=== PATIENT | female | born 1945 | race Caucasian/White ===

== ENCOUNTER 2016-03-16 13:06 | Inpatient (IN) | payer MEDICARE, OTHER ==
[2016-03-16] VITALS (10 sets, daily range): BP systolic 109–130; BP diastolic 57–66; PULSE 81–92; RESP 16–25; O2SAT 92–98
[~2016-03-16] VITALS: Ht 167.6 cm; Wt 57.3 kg
[~2016-03-16 13:06] MED LIST: ACET-2404 PO; ALBUTHFA INH; AZIT250T4 PO; BENZ-12 PO; DXM4T PO; LTH300C PO; OMEP20TA86 PO; TIOT18CA INH; TUMS PO
[2016-03-16 13:54] LABS: BASOPHILS % (AUTO) 0.2 % (0-3)
[2016-03-16 13:57] LABS: EOSINOPHILS % (AUTO) 0.4 % (0-5); MONOCYTES % (AUTO) 6.8 % (4-12); Mean Corpuscular Hemoglobin 27.7 pg (27.0-35.0); Mean Corpuscular Volume 91.1 fL (81-100); NEUTROPHILS % (AUTO) 87.7 % (40-74); Platelet Count 388 bil/L (150-400)
--- NOTE | 2016-03-16 13:59 | ED.REPORT ---
HPI-General Illness Date of Service Mar 16, 2016 ED Provider: Nisreen Mccarthy MD Patient is a 70 year old female with a hx of RA and COPD who reports to the ED from Urgent Care due to increased shortness of breath over the last week. She presents alert and denies pain. Patient's son states, "she has been really week , unable to get off the toilet by herself." Pt c/o associated black diarrhea for the past 3 days, bloody/tarry stool, fatigue, cough, and a slight fever this morning. She has not noticed a fever at home previously. Pt used her Ventolin inhaler once in the past week, which is not usual. She has never had a heart attack or stroke, and currently lives alone. Nursing Notes Stated Complaint: GENERALIZED WEAKNESS Chief Complaint: Respiratory Complaints Nursing Notes Reviewed: Yes Allergies: Coded Allergies: Sulfa (Sulfonamide Antibiotics) (Verified Allergy, Mild, Rash, 03/16/16) Uncoded Allergies: CT DYE (Allergy, Severe, HIVES, 02/12/13) (IVP) DIAZIDE (Allergy, Mild, Rash, 01/27/13) Scheduled Albuterol HFA (Proair HFA) 8.5 Gm Hfa.aer.ad 2 PUFFS INHALATION Q4H Ascorbic Acid (Vitamin C) 1,000 Mg Tab.chew 1,000 MG PO DAILY Dexamethasone (Dexamethasone) 1 Mg Tab 2 MG PO DAILY Ferrous Sulfate (Ferrous Sulfate) 325 Mg Tablet 650 MG PO QAM Hydroxychloroquine Sulfate (Hydroxychloroquine Sulfate) 200 Mg Tablet 400 MG PO DAILY Lactobacillus Acidophilus (Probiotic) 1 Each Capsule 1 EACH PO DAILY Paulina Carbonate (Paulina Carbonate) 300 Mg Cap 300 MG PO BID Methotrexate Sodium (Methotrexate) 2.5 Mg Tablet 7.5 MG PO BID-once a week Takes on Wednesdays 3 tabs (7.5mg) in AM and 3 tabs (7.5mg) in PM Scheduled PRN Acetaminophen (Extra Strength Non-Aspirin) 500 Mg Tablet 1,000 MG PO TID PRN PRN For Pain Calcium Carbonate (Tums) 500 Mg Tab.chew 1,000 MG PO TID PRN PRN For Indigestion General Time Seen by MD: 13:38 Chief Complaint Other (shortness of breath) Hx Obtained From: Patient, Son Arrived By: Walk-in Sudden in Onset?: Yes Onset Occurred: 1 week ago Symptom Duration: Since onset Recent Healthcare: Recent doctor visit Similar Sx Previous: Yes Past Medical History Past Medical History COPD hx of Pneumonia, last episode 2003 shogun's disease rheumatoid arthritis Reports: Depression Past Surgical History denies Reports: Tubal ligation Smoking History Never Smoker Social History Alcohol Use: "Social" Other Social History: Good social support, Lives alone Ambulatory Status Independent Review of Systems Full Review of Systems Constitutional: Reports: Fatigue, Fever Respiratory: Reports: Non-productive cough, Shortness of breath GI: Reports: Bloody/tarry stool, Diarrhea Neurologic: Reports: Weakness Complete sys rev & neg: except as marked. Physical Exam Vital Signs Vital Signs Date Time Temp Pulse Resp B/P Pulse Ox O2 Delivery O2 Flow Rate FiO2 03/16/16 15:21 90 24 115/57 95 Room Air 03/16/16 13:52 37.1 92 22 130/66 96 Room Air 03/16/16 13:16 36.2 88 18 111/64 98 Room Air Initial VS: Reviewed Head / Eyes: Atraumatic, Normocephalic, PERRL ENT: Mucous membranes moist, Conjunctiva normal, No scleral icterus Neck: Supple, Non-tender, Full range of motion Back: No CVA tenderness Extremities: Vascular intact, Neuro intact, No swelling, No tenderness Skin: Warm, Dry, No cyanosis Neurologic: Alert, Oriented, Nonfocal Psychiatric: Mood/affect normal, Behavior normal, Normal thought content General/Constitutional: Awake, Alert, Cooperative Respiratory / Chest: No wheezing no significant wheezes, diminished lung sounds throughout Heart Rate / Rhythm: Positive: Tachycardia Heart Sounds / Murmur: Positive: Systolic murmur present.. (IV/) tachycardic but not using accessory muscles Abdomen: Soft Bowel Sounds / Distention: Positive: Bowel sounds hyperactive Rectum / Perineum: Blood - occult heme - no stool in vault and clean glove with attempts Interpretation & Diagnostics Lab Results Interpretation Result Diagram: 03/17/16 0315 03/17/16 031 Test 03/16/16 13:40 03/16/16 15:29 03/16/16 15:55 D-Dimer 1.8mg/L (<0.50) Lactic Acid Level 1.5mmol/L (0.4-2.0) Paulina Level 1.0mEq/L (0.5-1.5) Hemoglobin A1c 5.6% (4.8-5.6) Magnesium Level 2.3mg/dL (1.6-2.6) Troponin T 0.018ug/L (0.0-0.011) Pro-B-Type Natriuretic Peptide 313.3pg/mL (0-301) Prealbumin 8mg/dL (20-40) Procalcitonin 0.41ng/mL (0.00-0.08) ECG Interpretation ECG Interpretation: Reviewed with Dr. White in ER ST elevation V2 w/out reciprocal changes Concern for anterior infart entertained but doubt LVH Time: 13:42 Interpreted by: ED physician Re-Eval/Medical Decision Med Decision/Clinical Course Presents from urgent care with at least a week of cough low-grade fevers and general malaise looking quite pale significant tachypnea mild tachycardia. Reports black stool for 3 day. absolutely no stool at all in the vault. Guaiac is equivocal. Chronic anemia with H&H stable initially Initial EKG shows mild ST elevation isolated in leads V2 and V3 with no reciprocal changes. We had with cardiology, doubt STEMI. No aspirin or heparin given concern for GI bleed Significant leukocytosis with multifocal pneumonia presumed source of difficulties. Fluid resuscitation and outpatient community-acquired pneumonia antibiotics initiated. D-dimer elevated, considered PE as contributing factor to tachypnea and tachycardia. Significant iodine allergy so CT angiogram is not an option at this point. With concern still for GI bleeding Lovenox/heparin also not yet an option. ABG shows pH of 7.4 CO2 33 and no significant hypoxia Initial troponin is elevated at 0.02. We will repeat at 2 hours and see how this is trending. We will repeat EKG. Admission for pneumonia causing tachypnea tachycardia no evidence of elevated lactate and blood pressure study at this point. Has 2 IV access and no anticipated need for pressors at this point. Central line not indicated. Repeat H&H, repeat troponin currently all ordered. A call placed for hospital admission. All findings and studies are reviewed with patient and her son. Questions answered. Time of Eval: 14:52 Patient Status: Condition unchanged Re-Evaluation/Progress Note: Pt rechecked. Discussed chest x-ray which shows multi-lobar pneumonia and lab results with high WBC count. Breathing has slowed slightly. Informed pt of plan for nasal swab and need for admission. Pt understands and agrees with plan. Consultation : Consulted With: Hospitalist Call Returned at: 15:34 Mine Foreman: Will see patient, Accepts admit Counseled Regarding: Diagnosis, Lab results, Need for admission Discharge & Departure Primary Impression: Pneumonia Pneumonia type: due to unspecified organism Laterality: unspecified laterality Lung location: unspecified part of lung Qualified Code: B99.9 - Unspecified infectious disease Disposition: ADMITTED TO HOSPITAL Discharge Condition All VS Reviewed: Yes Condition: Stable Referrals: Jay Marie MD (PCP) Crit Care Except Billable Proc Time Spent: 30-74 minutes Services Performed: Patient management by me, Time spent at bedside, Reviewing test results, Reviewing imaging, Discussing patient care, Documentation in record, Time with fam/surrogate Scribe Attestation Portion of this note were transcribed by Michael Benton. I, Dr. Mccarthy, personally performed the history, physical exam, and medical decision-making: I reviewed and confirmed the accuracy for the information in the transcribed note. Signed by: cheyanne Duncan, 03/16/16 1501 copies to: Jay Marie MD, Shawna L MD Mar 16, 2016 13:59 MICHAEL BENTON Mar 16, 2016 14:15 Presents from urgent care with at least a week of cough low-grade fevers and general malaise looking quite pale significant tachypnea mild tachycardia. Reports black stool for 3 day. absolutely no stool at all in the vault. Guaiac is equivocal. Chronic anemia with H&H stable initially Initial EKG shows mild ST elevation isolated in leads V2 and V3 with no reciprocal changes. We had with cardiology, doubt STEMI. No aspirin or heparin given concern for GI bleed Significant leukocytosis with multifocal pneumonia presumed source of difficulties. Fluid resuscitation and outpatient community-acquired pneumonia antibiotics initiated. D-dimer elevated, considered PE as contributing factor to tachypnea and tachycardia. Significant iodine allergy so CT angiogram is not an option at this point. With concern still for GI bleeding Lovenox/heparin also not yet an option. ABG shows pH of 7.4 CO2 33 and no significant hypoxia Initial troponin is elevated at 0.02. We will repeat at 2 hours and see how this is trending. We will repeat EKG. Admission for pneumonia causing tachypnea tachycardia no evidence of elevated lactate and blood pressure study at this point. Has 2 IV access and no anticipated need for pressors at this point. Central line not indicated. Repeat H&H, repeat troponin currently all ordered. A call placed for hospital admission. All findings and studies are reviewed with patient and her son. Questions answered. Time of Eval: 14:52 Patient Status: Condition unchanged Re-Evaluation/Progress Note: Pt rechecked. Discussed chest x-ray which shows multi-lobar pneumonia and lab results with high WBC count. Breathing has slowed slightly. Informed pt of plan for nasal swab and need for admission. Pt understands and agrees with plan. Consultation : Consulted With: Hospitalist Call Returned at: 15:34 Mine Foreman: Will see patient, Accepts admit Counseled Regarding: Diagnosis, Lab results, Need for admission Discharge & Departure Primary Impression: Pneumonia Pneumonia type: due to unspecified organism Laterality: unspecified laterality Lung location: unspecified part of lung Qualified Code: B99.9 - Unspecified infectious disease Disposition: ADMITTED TO HOSPITAL Discharge Condition All VS Reviewed: Yes Condition: Stable Referrals: Jay Marie MD (PCP) Scribe Attestation Portion of this note were transcribed by Michael Benton. I, Dr. Mccarthy, personally performed the history, physical exam, and medical decision-making: I reviewed and confirmed the accuracy for the information in the transcribed note. Signed by: cheyanne Duncan, 03/16/16 1501 copies to: Jay Marie MD, Shawna L MD Mar 16, 2016 13:59 MICHAEL BENTON Mar 16, 2016 14:15
[2016-03-16] MEDS ORDERED: 0.9% Sodium Chloride 1,000 ML IV STA (14:02)
[2016-03-16] MEDS ORDERED: cefTRIAXone Inj 2,000 MG in Dextrose 5% Minibag Plus 50 ML IV ONE (14:05)
[2016-03-16] MEDS ORDERED: Azithromycin Inj 500 MG in Dextrose 5% w/Vial Mate 250 ML IV ONE (14:05)
[2016-03-16 14:16] LABS: Magnesium 2.4 mg/dL (1.6-2.6)
[2016-03-16 14:21] LABS: TROPONIN T 0.02 ug/L (0.0-0.011)
--- NOTE | 2016-03-16 14:54 | DRSVH ---
PROCEDURE: X-RAY CHEST ONE VIEW, PORTABLE ([id number]) INDICATIONS: SHORTNESS OF BREATH TECHNIQUE: One view of the chest was acquired. COMPARISON: [facility], CR, XR CHEST 2VW, 11/24/2015, 15:30. FINDINGS: Surgical changes and devices: None. Lungs and pleura: No pleural effusions or pneumothorax. Bilateral multifocal air space opacities ar e present suspicious for pneumonia.. Mediastinum: Mediastinal contours appear normal. Heart size is normal. Bones and chest wall: No suspicious bony lesions. Overlying soft tissues appear unremarkable. IMPRESSION: Findings suspicious for multifocal pneumonia. Dictated by: Refugio Powell RRA Interpreted: Rolf Alamo MD on 03/16/2016 at 14:53 Transcribed by: CHINO on 03/16/2016 at 14:54 Approved by: Rolf Alamo M.D. on 03/17/2016 at 2:08
[2016-03-16] MEDS ORDERED: LIT300 PO (15:01)
[2016-03-16] MEDS ORDERED: HYDR200T5 PO (15:03)
[2016-03-16] MEDS ORDERED: DEX5 PO (15:05)
[2016-03-16] MEDS ORDERED: DEX1 PO (15:05)
[2016-03-16] MEDS ORDERED: ALBU8.5H2 INHALATION (15:08)
[2016-03-16] MEDS ORDERED: METH2.5T PO (15:08)
[2016-03-16] MEDS ORDERED: LACT1CAP65 PO (15:08)
[2016-03-16] MEDS ORDERED: FERR325C PO (15:09)
[2016-03-16] MEDS ORDERED: FERR-83 PO (15:09)
[2016-03-16] MEDS ORDERED: ASCO100089 PO (15:10)
--- NOTE | 2016-03-16 15:19 | ABG ---
DateTimeAnalyzed 15:12:00 -_ pH ____7.450 - 7.350 7.450 pCO2 ___32.8__ -mmHg 35.0 45.0 pO2 ___75.7__ -mmHg 70.0 100 HCO3- ___22.5__ -mmol/L 22.0 26.0 ABE ___-0.7__ -mmol/L -2.0 2.0 tHb ____9.2__ -g/dL 12.0 18.0 O2Hb ___93.6__ -% 95.0 COHb ____1.0__ -% 1.5 MetHb ____1.3__ -% 0.4 1.5 sO2 ___95.8__ -% FIO2 ___21.0__ -% Drawn By CF - Date/Time Notified____ 15:19:00 -_ Notified By CF - Notified Whom ___DR. LAURSEN - B 751 -mmHg tO2 ___12.2__ -Vol% Waylon test _Positive -
--- NOTE | 2016-03-16 15:20 | ABG ---
DateTimeAnalyzed 15:12:00 -_ pH ____7.450 - 7.350 7.450 pCO2 ___32.8__ -mmHg 35.0 45.0 pO2 ___75.7__ -mmHg 69.0 116 HCO3- ___22.5__ -mmol/L ABE ___-0.7__ -mmol/L tHb ____9.2__ -g/dL O2Hb ___93.6__ -% COHb ____1.0__ -% MetHb ____1.3__ -% sO2 ___95.8__ -% FIO2 ___21.0__ -% Drawn By CF - Date/Time Notified____ 15:19:00 -_ Notified By CF - Notified Whom ___DR. LAURSEN - B 751 -mmHg tO2 ___12.2__ -Vol% Waylon test _Positive -
[2016-03-16] MEDS ORDERED: CALC500T9 PO (15:32)
[2016-03-16] MEDS ORDERED: ACET-2561 PO (15:32)
[2016-03-16] MEDS ORDERED: Polyethylene Glycol (PEG) 17 Gm Powder PO PRN (15:55)
[2016-03-16] MEDS ORDERED: Ondansetron 2 mg/mL 2 mL Inj IVPUSH PRN (15:55)
[2016-03-16] MEDS ORDERED: Senna-Docusate 8.6-50 mg Tablet PO PRN (15:55)
[2016-03-16 16:40] LABS: Magnesium 2.3 mg/dL (1.6-2.6)
[2016-03-16 16:51] LABS: TROPONIN T 0.018 ug/L (0.0-0.011)
--- NOTE | 2016-03-16 17:03 | DRSVH ---
PROCEDURE: X-RAY CHEST, TWO VIEWS ([id number]) INDICATIONS: dyspnea TECHNIQUE: 2 views of the chest were acquired. COMPARISON: [facility], CR, XR CHEST 1VW (PORTABLE), 03/16/2016, 13:39. [facility], CR, XR CHEST 2VW, 11/24/2015, 15:30. FINDINGS: Surgical changes and devices: None. Lungs and pleura: No pleural effusions or pneumothorax. Lungs are abnormal with severe pulmonary hy perexpansion and bibasilar pneumonia with additional pneumonia at the right midlung. No central mass lesion or pleural effusion is found. Mediastinum: Mediastinal contours are normal. Heart size is normal. Bones and chest wall: No suspicious bony abnormalities. Soft tissues appear unremarkable. IMPRESSION: Severe COPD, bilateral pneumonia as discussed. Dictated by: Rolf Alamo M.D. on 03/16/2016 at 17:01 Approved by: Rolf Alamo M.D. on 03/16/2016 at 17:02
--- NOTE | 2016-03-16 17:27 | PCM.HPMED ---
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 She feels short of breath at rest. She also has worsening of cough, productive of whitish sputum. Denies chest pain. Denies fever but had temp of 100.3 at urgent care clinic today. She states she had pneumonia in November and presented with similar symptoms. She has stable COPD, on Advair and ProAir. No home oxygen. No hospitalization for exacerbations in years. She also states she had loose dark stool for 3 days which stopped yesterday. Complains of generalized weakness. Rectal exam per ED empty rectum. In ED, afebrile, RR 28, BP 111/64, saturating 98% on room air, HR 92 WBC 25, hemoglobin 10, Repeat hemoglobin 9.1.unremarkable BMP. D-dimer elevated at 1.8. Chest x-ray multifocal pneumonia. EKG ABBIE V3 with no reciprocal change ,SR ABG 7.45/33/75 FIO2 21 %, consistent with acute respiratory alkalosis Ceftriaxone and azithromycin started. CTA considered but deferred due to contrast allergy. Empiric anticoagulation considered but deferred due to suspected GI bleed. Hospitalist service requested for admission for pneumonia. Review of Systems: Comprehensive review of systems performed, pertinent positives and negatives included in history of present illness Allergies Coded Allergies: Sulfa (Sulfonamide Antibiotics) (Verified Allergy, Mild, Rash, 03/16/16) Uncoded Allergies: CT DYE (Allergy, Severe, HIVES, 02/12/13) (IVP) DIAZIDE (Allergy, Mild, Rash, 01/27/13) Home Medications Albuterol HFA (Proair HFA) 8.5 Gm Hfa.aer.ad 2 PUFFS INHALATION Q4H Ascorbic Acid (Vitamin C) 1,000 Mg Tab.chew 1,000 MG PO DAILY Calcium Carbonate-Expunged Drug, Do Not Renew (Tums Chewable-Expunged Drug, Do Not Renew!) 500 Mg Tablet 1,000-3,000 MG PO DAILY Dexamethasone (Dexamethasone) 1 Mg Tab 2 MG PO DAILY for 5 days of a week. Day 2 of 5 today Ferrous Sulfate (Ferrous Sulfate) 325 Mg Tablet 650 MG PO QAM Hydroxychloroquine Sulfate (Hydroxychloroquine Sulfate) 200 Mg Tablet 400 MG PO DAILY Lactobacillus Acidophilus (Probiotic) 1 Each Capsule 1 EACH PO DAILY Solvay Carbonate (Solvay Carbonate) 300 Mg Cap 300 MG PO BID Methotrexate Sodium (Methotrexate) 2.5 Mg Tablet 7.5 MG PO BID-once a week ( TO BE GIVEN TODAy) PMH rheumatoid arthritis, Sjogren syndrome, COPD Surgical History Tubal ligation Family History Mother at age 60s, has history of breast cancer Present . 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 In moderate respiratory distress, tachypneic, using accessory muscles HEENT: Head is normocephalic atraumatic, Pupils equal and reactive, extraocular movements intact, Slightly elevated JVD Lungs clear to auscultation bilaterally Heart regular rate and rhythm,GII systolic murmur at LLSB Abdomen soft nontender without hepatosplenomegaly Extremities pulses are present dorsalis pedis posterior tibialis and radial. Skin is warm and dry there are no rashes, Psych alert and oriented to person place and time Neuro cranial nerves II through XII are grossly intact Lymph: There is no lymphadenopathy appreciated in the cervical supra infraclavicular regions : no galloway Lab and Diagnostics Result Diagram: 03/16/16 1529 03/16/16 1340 X-Rays, CTs and MRIs PROCEDURE: X-RAY CHEST ONE VIEW, PORTABLE ([id number]) INDICATIONS: SHORTNESS OF BREATH IMPRESSION: Findings suspicious for multifocal pneumonia. 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 # community-acquired pneumonia, POA, acute -Dyspnea and cough, elevated white count, tachypnea, chest x-ray consistent with pneumonia -Started on ceftriaxone and azithromycin in ED, will continue with that -DuoNeb q6h -We will order Respiratory PCR, influenza screen, urine Legionella and pneumococcal antigen -Blood culture pending -Pro calcitonin 0.41 #COPD exacerbation, acute, POA -Treatment as above -Continue home dexamethasone 2 mg by mouth daily for rheumatoid arthritis # Elevated d-dimer -Presentation concerning for PE but less likely, dyspnea with elevated d-dimer, slightly elevated JVP, acute respiratory alkalosis, elevated A-a gradient -Unable to do CT angiogram due to contrast allergy, will hold off empiric anticoagulation given recent dark stool and unable to rule out GI bleed on rectal exam. -Will do VQ scan, echocardiogram # Suspected GI bleed -Patient had 3 days of dark stool -empty rectum on rectal exam by ED. will order stool occult blood -Hemoglobin dropped by 1 g after 1L of fluid. We will continue to trend # Anemia,poa,acute on chronic -Patient is on iron outpatient, baseline hemoglobin 10 #Rheumatoid arthritis, Sjogren's syndrome -Continue dexamethasone 2 mg by mouth daily 5 days a week, day 2 of 5 today -Continue Plaquenil 400 mg by mouth daily -Continue methotrexate 7.5 mg by mouth twice a day once a week.due for her weekly dose today ,will give 2 doses #Immunosuppressed, chronic, stable #Bipolar disorder -Continue lithium. Level 1.0, therapeutic # ppx -hold off lovenox pending stool occult -PPI given steroid discussed with patient and she is Full code, Resuscitation Status: CPR: Attempt Resuscitation Time spent 55 minutes copies to: Jay Marie MD, Melaku MD Mar 16, 2016 17:27
--- NOTE | 2016-03-16 18:14 | DRSVH ---
PROCEDURE: NM LUNG VQ RADIOPHARMACEUTICAL: 27.0 mCi Tc-99m DTPA aerosol by inhalation and 5.69 mCi Tc-99m MAA intravenousl y. INDICATIONS: dyspnea,elevated d-dimer,contrast allergy TECHNIQUE: Ventilation images were obtained first with Tc-99m DTPA aerosol. Subsequently, perfusion images were acquired after intravenous injection of Tc-99m MAA. Anterior, posterior, CUELLO, THAI, RPO, LPO, left and right lateral views were obtained. COMPARISON: [facility], CR, XR CHEST 2VW, 03/16/2016, 16:44. FINDINGS: Moderate-sized perfusion defects noted in the posterior basal segments of the right lower lobe and left lower lobe which do not have a matched ventilation defect. Numerous matched perfusion- ventilation defects are noted compatible with COPD. IMPRESSION: Probability for pulmonary embolus is intermediate (15-85%). Dictated by: Marcela Baron MD, PhD on 03/16/2016 at 18:06 Approved by: Marcela Baron MD, PhD on 03/16/2016 at 18:12
--- NOTE | 2016-03-16 18:15 | NUR ---
Arrival to 2027 Pt arrived to 2027 via stretcher from the ED. Pt is accompanied by her daughter and her son. Pt is on RA, sats are great at 95-98%. Pt appears generally pale in color. She states she had loose dark stool for the past three days, but no stool here today. H and H are stable currently, and will be monitored closely. Pt's son DJ, went to [facility] to get pt her methotrexate as [facility] has none available to give her to night. VQ scan is negative for PE.
[2016-03-16] MEDS ORDERED: METHOTREXATE PO ONE (20:30)
[2016-03-16] MEDS: Albuterol-Ipratropium 3 mL Inhalation Solution NEB SCH (21:28)
[2016-03-17] VITALS (11 sets, daily range): BP systolic 97–125; BP diastolic 54–70; PULSE 74–89; RESP 15–28; O2SAT 94–98
[2016-03-17 03:41] LABS: BASOPHILS % (AUTO) 0.1 % (0-3); EOSINOPHILS % (AUTO) 1.3 % (0-5); MONOCYTES % (AUTO) 8.2 % (4-12); Mean Corpuscular Hemoglobin 27.2 pg (27.0-35.0); Mean Corpuscular Volume 90.7 fL (81-100); NEUTROPHILS % (AUTO) 84.5 % (40-74); Platelet Count 361 bil/L (150-400)
[2016-03-17] MEDS: Albuterol-Ipratropium 3 mL Inhalation Solution NEB SCH ×4 (04:34→21:38)
--- NOTE | 2016-03-17 06:22 | NUR ---
VQ scan: Report of VQ scan states Probability of PE intermediate 15-* Addendum: 03/17/16 at 0626 by ZELALEM LOPEZ RN Probability of PE intermediate 15-85%. Results not reflected in MD admit note. Dr. Figueroa made aware of findings, we are also monitoring for potential GI bleed. MD aware of results- no new orders at this time. No s/s of bleeding overnight. No BM noted. Hat in toilet. Sp02 monitored via [employer], sp02 in the 90s on RA. pt does become ROACH, however recovers easily with rest. PRN PO Tylenol given for generalized pain with good results- pt sleeping intermittently.
[2016-03-17] MEDS: Ascorbic Acid 500 mg Tablet PO SCH (08:21)
[2016-03-17] MEDS: Hydroxychloroqine 200 mg Tablet PO SCH (08:22)
[2016-03-17] MEDS: Azithromycin Inj 500 MG in Dextrose 5% w/Vial Mate 250 ML IV SCH (08:24)
[2016-03-17] MEDS ORDERED: 0.9% Sodium Chloride 250 ML ONE (08:27)
[2016-03-17] MEDS ORDERED: METHOTREXATE 2.5 MG PO ONE (08:30)
[2016-03-17] MEDS: Pantoprazole 20 mg ER24 Tablet PO SCH (08:34)
[2016-03-17] MEDS ORDERED: cefTRIAXone Inj 2,000 MG in Dextrose 5% Minibag Plus 50 ML IV SCH (08:55)
[2016-03-17] MEDS: Alum-Mag Hydrox-Simeth 30 mL Suspension PO PRN ×2 (11:00→17:10)
--- NOTE | 2016-03-17 12:01 | DRSVH ---
[facility] [address] [place] [address] Echocardiogram Report Name: BRADLY HESS Date: 017 Height: 66 in Hospital Exam Location: [facility] Weight: 124 lb Gender: Female BSA: 1.6 m2 : 1945 Age: 70 yrs BP: 97/54 mm Hg Reason For Study: DYSPNEA History: COPD Ordering Physician: HOSPITALIST [facility] Performed By: Iwona Burgess Referring Physician: Dr. Jay Marie Interpretation Summary The left ventricle is normal in size. The ejection fraction is estimated to be 60-65%. There has been no significant change in LV EF since the previous study. The right ventricle is normal in size and function. There is mild aortic stenosis. Compared to the prior echo study, there has been no significant change in the severity of aortic stenosis. There is mild tricuspid regurgitation. Compared to the prior echo exam, there has been a decrease in TR severity. The right ventricular systolic pressure is estimated at 32 mmHg assuming a right atrial pressure of 8 mm Hg. Procedure: A two-dimensional transthoracic echocardiogram with color flow and Doppler was performed. The study quality was technically adequate. Comparison is made with the echocardiogram of 06-15-2015. The patient was in normal sinus rhythm during the exam. Left Ventricle: The left ventricle is normal in size. Proximal septal thickening is noted. There is no echo evidence for significant left ventricular outflow tract obstruction. There is no thrombus. The ejection fraction is estimated to be 60-65%. There has been no significant change since the previous study. There are no focal wall motion abnormalities. Spectral Doppler of the mitral valve is reversed, with an E/A wave ratio < 1.0. Right Ventricle: The right ventricle is normal in size and function. Atria: The left atrium is severely dilated. The left atrium has significantly increased in size since the prior echo exam. The right atrium is mildly dilated. There has been no significant change since the previous study. There is no Doppler evidence for an atrial septal defect. Mitral Valve: The mitral valve leaflets appear mildly thickened, but open well. There is mild to moderate mitral annular calcification. The mitral valve leaflets are mildly calcified. The mitral valve chordae are thickened and/or calcified. There is trace mitral regurgitation. Compared to the prior echo study, there has been no change in the severity of mitral regurgitation. Aortic Valve: The aortic valve is trileaflet. The aortic valve is moderately calcified. Leaflet mobility is minimally reduced. The peak aortic velocity is 2.2 m/sec. The aortic valve mean gradient is 11.8 mmHg. The peak aortic velocity on the previous exam was 2.12 m/sec. The calculated aortic valve area is 1.7 cm2. There is mild aortic stenosis. Compared to the prior echo study, there has been no change in the severity of aortic stenosis. There is trace aortic regurgitation. Tricuspid Valve: The tricuspid valve leaflets are thickened and/or calcified, but open well. There is mild tricuspid regurgitation. The right ventricular systolic pressure is estimated at 32 mmHg assuming a right atrial pressure of 8 mm Hg. Compared to the prior echo exam, there has been a decrease in TR severity. Pulmonic Valve: The pulmonic valve leaflets are thin and pliable; valve motion is normal. There is trace pulmonic regurgitation. Great Vessels: The aortic root is normal size. The dimensions of the ascending aorta are normal. The pulmonary artery is normal size. The IVC is dilated (diameter is greater than 2.1 cm) yet it collapses greater than 50% with a sniff. This suggests a right atrial pressure of 8 mm Hg. Pericardium/ Pleura There is a trivial pericardial effusion noted. There are no echocardiographic indications of cardiac tamponade. There has been no significant change since the previous study. There is no pleural effusion. MMode/2D Measurements & Calculations LVIDd: 5.0 cm LA dimension: 4.0 cm RA long axis: 5.7 cm LVOT diam: 2.0 cm LVIDs: 3.3 cm AoV Opening FS: 33.8 % LA A2 area: 24.5 cm RA area: 20.3 cm EPSS: 0.77 cm LA A4 area: 24.8 cm RA vol: 61.6 ml Ao root diam IVSd: 0.92 cm LA length (vol) RA : 37.7 ml/m LVPWd: 0.91 cm RVDd major: 6.1 cm Aortic Jxn LA vol: 89.2 ml LA vol index asc Aorta Diam Ao Arch Diam IVC diam: 2.4 cm (distal): 3.1 cm EDV(MOD-sp2) LV oh. diameter/BSA LV sys. diameter/BSA RVD2 (mid) : 117.0 ml (cm/m^2): 3.0 (cm/m^2): 2.0 : 3.0 cm Doppler Measurements & Calculations Ao V2 max MV E max rian MV E/A: 0.80 TR max rian : 222.4 cm/sec : 77.4 cm/sec Med Peak E' Rian : 245.8 cm/sec Ao max P.8 mmHg MV A max rian TR max PG Ao mean PG : 97.0 cm/sec E/E' med: 7.5 : 24.2 mmHg : 11.8 mmHg MV P1/2t: 65.5 msec Lat Peak E' Rian PA V2 max LVOT Max Rian : 112.2 cm/sec : 122.8 cm/sec E/E' lat: 7.3 PA mean PG E/e' average JOSELYN(I,D): 1.7 cm PA Accel Time sev ratio: 0.52 Pulm A Revs Dur : 0.09 sec MV A dur : 0.11 sec MV P1/2t max rian Ao V2 mean LV V1 max PG PA V2 mean : 163.0 cm/sec : 80.1 cm/sec Ao V2 VTI: 44.3 cm LV V1 VTI MVA(P1/2t): 3.4 cm2 : 23.1 cm JOSELYN(V,D): 1.8 cm2 JOSELYN indexed to HUNTER Shaffer (cm^2/m^2): 1.0 Dur: -0.02 msec Reading Physician:JAYCEE
--- NOTE | 2016-03-17 16:35 | PCM.PNMED ---
Subjective Date of Service Mar 17, 2016 Subjective Patient was examined at bedside today. Patient denies any chest pain, nausea, vomiting, diarrhea. Reports shortness of breath but at current baseline. Exam Vital Signs Vital Sign - Last Date Time Temp Pulse Resp B/P Pulse Ox O2 Delivery O2 Flow Rate FiO2 03/17/16 16:11 36.6 86 16 109/61 96 Room Air Intake and Output 03/16/16 03/16/16 03/17/16 Cumulative From/Thru 15:00 23:00 07:00 03/16/16 13:16 - 03/17/16 06:09 Intake Total 1000 ml 1172 ml 2172 ml Output Total 1300 ml 1300 ml Balance 1000 ml -128 ml 872 ml Intake Oral 1172 ml 1172 ml IV Total 1000 ml 1000 ml Output Urine Total 1300 ml 1300 ml Exam Physical Exam: GEN: Patient was awake, alert, responding appropriately to questions HEENT: PERRLA, EOMI, Neck soft supple, trachea midline, nomocephalic/atraumatic CV: +S1/S2, RRR, systolic murmurs auscultated Respiratory: CTAB, no wheezes, rales, rhonchi, tachypnea (reports at baseline), barrel chested GI: +bowel sounds x4, soft, compressible, non TTP EXT: no c/c/e Neuro: CN II-XII grossly intact Psych: mood and affect were appropriate IVs and Medications Medications Reviewed: Medications were reviewed in detail Medications Current Medications Ondansetron HCl 4 to 8 mg Q4H PRN IVPUSH; Start 03/16/16 at 15:55 Senna 2 tablet BID PRN PO; Start 03/16/16 at 15:55 Al Hydrox/Mg Hydrox/Simethicone 30 ml Q6H PRN PO Last administered on 03/17/16 11:00; Admin Dose 30 ML; Start 03/16/16 at 15:55 Polyethylene Glycol 17 gm 17 gm DAILY PRN PO; Start 03/16/16 at 15:55 Ceftriaxone Sodium 2000 mg/ Dextrose/Water 50 ml @ 100 mls/hr Q24H IV Last administered on 03/17/16 10:02; Admin Dose 100 MLS/HR; Start 03/17/16 at 08:55 Azithromycin/ Dextrose/Water 250 ml @ 250 mls/hr Q24 IV Last administered on 08:24; Admin Dose 250 MLS/HR; Start 03/17/16 at 08:30 Ferrous Sulfate 650 mg DAILY PO Last administered on 03/17/16 08:21; Admin Dose 650 MG; Start 03/17/16 at 08:30 Hydroxychloroquine Sulfate 400 mg DAILY PO Last administered on 03/17/16 08:22; Admin Dose 400 MG; Start 03/17/16 at 08:30 Pen Mar Carbonate 300 mg BID PO Last administered on 03/17/16 08:21; Admin Dose 300 MG; Start 03/16/16 at 20:30 Acetaminophen 975 mg TID PRN PO Last administered on 03/17/16 12:06; Admin Dose 975 MG; Start 03/16/16 at 16:35 Ascorbic Acid 1,000 mg DAILY PO Last administered on 03/17/16 08:21; Admin Dose 1,000 MG; Start 03/17/16 at 08:30 Dexamethasone 2 mg DAILY PO Last administered on 03/17/16 08:21; Admin Dose 2 MG ; Start 03/17/16 at 08:30 Lactobacillus Acidophilus 1 tablet DAILY PO Last administered on 03/17/16 08:21 ; Admin Dose 1 TABLET; Start 03/17/16 at 08:30 Albuterol/ Ipratropium 3 ml Q6H NEB Last administered on 03/17/16 15:01; Admin Dose 3 ML; Start 03/16/16 at 20:30 Pantoprazole 20 mg DAILYAC PO; Start 03/17/16 at 07:30 Lab and Diagnostics Result Diagram: 03/17/1631403/17/165 X-Rays, CTs and MRIs PROCEDURE: X-RAY CHEST ONE VIEW, PORTABLE ([id number]) INDICATIONS: SHORTNESS OF BREATH IMPRESSION: Findings suspicious for multifocal pneumonia. 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 Community-acquired pneumonia, POA, acute -Dyspnea and cough, elevated white count, tachypnea, chest x-ray consistent with pneumonia - WBC 25-->20.2 (trending down) -Continue ceftriaxone and azithromycin -DuoNeb q6h -Respiratory PCR negative, influenza screen negative, urine Legionella and pneumococcal antigen negative, MRSA screen negative -Blood culture negative 24 hours -Pro calcitonin 0.41 COPD exacerbation, acute, POA -Treatment as above -Continue home dexamethasone 2 mg by mouth daily for rheumatoid arthritis Elevated d-dimer -Presentation concerning for PE but less likely, dyspnea with elevated d-dimer, slightly elevated JVP, acute respiratory alkalosis, elevated A-a gradient -Unable to do CT angiogram due to contrast allergy, will hold off empiric anticoagulation given recent dark stool and unable to rule out GI bleed on rectal exam. -VQ scan Probability for pulmonary embolus is intermediate (15-85%). - echocardiogram shows ejection fraction of 60-65%, mild aortic stenosis, mild tricuspid regurg with some decreased in severity compared to the previous echo Suspected GI bleed -Patient had 3 days of dark stool -Hemoccult stool culture was negative -Hemoglobin dropped by 1 g after 1L of fluid. We will continue to trend from admission 10.0--> 9.1--> 8.8 today Anemia,poa,acute on chronic -Patient is on iron outpatient, baseline hemoglobin 10 -Dark stools may be attributed to the patient's current iron intake Rheumatoid arthritis, Sjogren's syndrome -Continue dexamethasone 2 mg by mouth daily 5 days a week, day 2 of 5 today -Continue Plaquenil 400 mg by mouth daily -Continue methotrexate 7.5 mg by mouth twice a day once a week.due for her weekly dose today ,will give 2 doses Immunosuppressed, chronic, stable Bipolar disorder -Continue lithium. Level 1.0, therapeutic -PPI given steroid discussed with patient and she is Full code, Disposition: Patient is currently progressing well and it seems that her acute shortness of breath is most likely secondary to pneumonia with exacerbation of COPD. We will continue the patient on antibiotics as she seems to be responding well. At this time the patient's GI bleed has been ruled out and the patient start stools is most likely secondary to the usage of her iron. If the patient remained stable and antibiotics continued to seem to be working the patient should be able to be discharged home tomorrow. VQ scan was done showing an intermediate risk for PE, at this time the patient is not a candidate for CT angiogram she has an allergy to contrast dye. At this point the patient is currently satting in the mid to high 90s on room air. We will continue to monitor. Resuscitation Status: CPR: Attempt Resuscitation Lizzette Scruggs DO Mar 17, 2016 16:35
--- NOTE | 2016-03-17 18:38 | NUR ---
Indigestion Pt reports frequent issues with indigestion at home and reporting indigestion/heart burn today, Pt given maalox PRN X2. Pt reported as helping, but some heartburn still present and requested a tums PRN. paged and TORB written for 2 tabs tums PRN TID prior to shift change, Pt updated.
[2016-03-18] VITALS: BP 108/55; PULSE 89; RESP 22; O2SAT 97
[2016-03-18 03:26] VITALS: BP 125/67; PULSE 90; RESP 20; O2SAT 98
[2016-03-18 03:58] VITALS: PULSE 90; RESP 22; O2SAT 98
[2016-03-18] MEDS: Albuterol-Ipratropium 3 mL Inhalation Solution NEB SCH ×2 (03:58→11:38)
[2016-03-18 04:47] LABS: BASOPHILS % (AUTO) 0.1 % (0-3); EOSINOPHILS % (AUTO) 0.8 % (0-5); Mean Corpuscular Hemoglobin 27.2 pg (27.0-35.0); Mean Corpuscular Volume 89.9 fL (81-100); NEUTROPHILS % (AUTO) 86.5 % (40-74); Platelet Count 454 bil/L (150-400)
--- NOTE | 2016-03-18 06:09 | NUR ---
Progress note PT has done well t/o the night and continues to regain her strength. SHe ambulated around entire hallway about 6 times through shift. Lungs have improved with only faint crackles heard. SHe has been in NSR. ORA. H/H stable. Only complaint was indigestion which she received tums for. PT is very eager to d/c today. Dtr spent the night again with her.
[2016-03-18 07:50] VITALS: BP 120/65; PULSE 68; RESP 18; O2SAT 95
[2016-03-18] MEDS: Pantoprazole 20 mg ER24 Tablet PO SCH (07:55)
[2016-03-18] MEDS: Azithromycin Inj 500 MG in Dextrose 5% w/Vial Mate 250 ML IV SCH (07:58)
[2016-03-18 08:00] VITALS: PULSE 82
[2016-03-18] MEDS: Hydroxychloroqine 200 mg Tablet PO SCH (10:21)
[2016-03-18] MEDS: Ascorbic Acid 500 mg Tablet PO SCH (10:21)
--- NOTE | 2016-03-18 10:44 | PCM.DIMED ---
Discharge Instructions Date of Service Mar 18, 2016 Dates of Hospitalization Mar 16, 2016 at 16:28 Discharge Diagnosis Discharge Diagnosis Community acquired pneumonia COPD exacerbation Elevated d-dimer Possible GI bleed Sjogren syndrome Bipolar Diet No restrictions Activity Other (gradually return to your normal daily activities) Patient Instructions Follow-up Provider: Jay Maire MD Follow-up with PCP in: 1 week (if an appointment has not already been made please call to schedule an appointment) Lizzette Scruggs DO Mar 18, 2016 10:44
[2016-03-18] MEDS ORDERED: LEVO750T9 PO (10:49)
[2016-03-18] MEDS ORDERED: ZIT250 PO (10:49)
--- NOTE | 2016-03-18 11:00 | PCM.DC.MED ---
Discharge Summary Date of Service Mar 18, 2016 Dates of Hospitalization Date of Hospital Admission Mar 16, 2016 at 16:28 Date of Discharge: Mar 18, 2016 Providers: Admitting Physician: Kailash Garibay MD Primary Care Physician: Jay Marie MD Attending Physician: Kailash Garibay MD Diagnosis at Time of Discharge Diagnosis at Time of Discharge Community acquired pneumonia COPD exacerbation Elevated d-dimer Possible GI bleed Sjogren syndrome Bipolar Procedures XRay, CTs & MRIs PROCEDURE: X-RAY CHEST ONE VIEW, PORTABLE ([id number]) INDICATIONS: SHORTNESS OF BREATH IMPRESSION: Findings suspicious for multifocal pneumonia. 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 She feels short of breath at rest. She also has worsening of cough, productive of whitish sputum. Denies chest pain. Denies fever but had temp of 100.3 at urgent care clinic today. She states she had pneumonia in November and presented with similar symptoms. She has stable COPD, on Advair and ProAir. No home oxygen. No hospitalization for exacerbations in years. She also states she had loose dark stool for 3 days which stopped yesterday. Complains of generalized weakness. Rectal exam per ED empty rectum. In ED, afebrile, RR 28, BP 111/64, saturating 98% on room air, HR 92 WBC 25, hemoglobin 10, Repeat hemoglobin 9.1.unremarkable BMP. D-dimer elevated at 1.8. Chest x-ray multifocal pneumonia. EKG ABBIE V3 with no reciprocal change ,SR ABG 7.45/33/75 FIO2 21 %, consistent with acute respiratory alkalosis Ceftriaxone and azithromycin started. CTA considered but deferred due to contrast allergy. Empiric anticoagulation considered but deferred due to suspected GI bleed. Hospitalist service requested for admission for pneumonia. 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 Patient presented and a chest x-ray was done consistent with pneumonia. The patient was started on ceftriaxone and azithromycin, continued on DuoNeb nebs every 6. The patient seemed to respond well to treatment. Respiratory PCR was negative, influenza screen negative, urine Legionella and pneumococcal antigens were also negative, and MRSA negative. Patient had blood cultures that were negative 2 days. Patient also had an exacerbation of her COPD she was continued on her home dexamethasone dose 2 mg per day and was started on azithromycin and continued on DuoNeb's and the patient responded well. The patient did have an elevated d-dimer which could be secondary to her current disease process or immunologic state as the patient does have a chronic history of rheumatoid arthritis and Sjogren syndrome. The patient does have a allergy to contrast dye so a VQ scan was ordered showing that the patient's probability of a PE was intermediate at 15-85%. This was discussed with the patient who felt that her shortness of breath was now back to its current baseline and chose not to be treated. There is low suspicion at this point for PE but the patient's shortness of breath is still at the patient's baseline and this is admission is most likely secondary to COPD exacerbation and her pneumonia. Patient's troponins were trended and she came in with and slightly elevated troponin of 0.02 which quickly trended down with the next draw 0.018. This was most likely a troponin leak secondary to ischemic to me and from the COPD exacerbation. There was a possible suspicion of a GI bleed. The patient's H&H was dropping after being resuscitated by 1 L of fluid however the patient's hemoglobin is now trending up from 8.8-9.4. A Hemoccult stool was taken and found to be negative for any blood. The patient is being discharged home in stable condition on Levaquin and azithromycin patient should take this for a full 10 days. Exam Vital Signs (Last) Date Time Temp Pulse Resp B/P Pulse Ox O2 Delivery O2 Flow Rate FiO2 03/18/16 08:00 82 03/18/16 07:50 36.5 18 120/65 95 Room Air Exam Physical Exam: GEN: Patient was awake, alert, responding appropriately to questions HEENT: PERRLA, EOMI, Neck soft supple, trachea midline, nomocephalic/atraumatic CV: +S1/S2, RRR, systolic murmurs auscultated Respiratory: Coarse, no wheezes, rales, rhonchi, tachypneic at patient's baseline GI: +bowel sounds x4, soft, compressible, non TTP EXT: no c/c/e Neuro: CN II-XII grossly intact Psych: mood and affect were appropriate Test 03/16/16 13:40 03/16/16 15:29 03/16/16 15:55 03/16/16 17:21 D-Dimer 1.8mg/L (<0.50) Lactic Acid Level 1.5mmol/L (0.4-2.0) Hodges Level 1.0mEq/L (0.5-1.5) Hemoglobin A1c 5.6% (4.8-5.6) Magnesium Level 2.3mg/dL (1.6-2.6) Troponin T 0.018ug/L (0.0-0.011) Pro-B-Type Natriuretic Peptide 313.3pg/mL (0-301) Prealbumin 8mg/dL (20-40) Procalcitonin 0.41ng/mL (0.00-0.08) Urine Legionella pneumophilia Ag Negative (Negative) Test 03/18/16 04:34 White Blood Count 18.1th/mm3 (3.8-10.1) Red Blood Count 3.46mil/mm3 (3.90-5.20) Hemoglobin 9.4g/dL (12.0-15.6) Hematocrit 31.1% (35.0-46.0) Mean Corpuscular Volume 89.9fL (81-100) Mean Corpuscular Hemoglobin 27.2pg (27.0-35.0) Mean Corpuscular Hemoglobin Concent 30.2% (32.0-37.0) Red Cell Distribution Width 14.5% (12.3-15.4) Platelet Count 454bil/L (150-400) Neutrophils (%) (Auto) 86.5% (40-74) Lymphocytes (%) (Auto) 9.1% (14-46) Monocytes (%) (Auto) 3.0% (4-12) Eosinophils (%) (Auto) 0.8% (0-5) Basophils (%) (Auto) 0.1% (0-3) Sodium Level 142mEq/L (134-144) Potassium Level 4.2mEq/L (3.5-5.2) Chloride Level 107mEq/L (97-108) Carbon Dioxide Level 21mmol/L (18-29) Blood Urea Nitrogen 28mg/dL (8-27) Creatinine 0.88mg/dL (0.57-1.00) Estimat Glomerular Filtration Rate 91mL/min (>59) Glucose Level 119mg/dL (60-99) Calcium Level 9.5mg/dL (8.5-10.1) Total Bilirubin 0.2mg/dL (0.0-1.2) Aspartate Amino Transf (AST/SGOT) 38U/L (0-50) Alanine Aminotransferase (ALT/SGPT) 43U/L (0-32) Alkaline Phosphatase 96U/L (25-165) Total Protein 6.6g/dL (6.4-8.4) Albumin 3.6g/dL (3.4-5.0) Discharge Medications Discharge Medications Albuterol HFA (Proair HFA) 8.5 Gm Hfa.aer.ad 2 PUFFS INHALATION Q4H (Reported) Ascorbic Acid (Vitamin C) 1,000 Mg Tab.chew 1,000 MG PO DAILY (Reported) Azithromycin (Zithromax) 250 Mg Tablet 500 MG PO DAILY Prescribed by: JODI DRAPER DO Dexamethasone (Dexamethasone) 1 Mg Tab 2 MG PO DAILY (Reported) Ferrous Sulfate (Ferrous Sulfate) 325 Mg Tablet 650 MG PO QAM (Reported) Hydroxychloroquine Sulfate (Hydroxychloroquine Sulfate) 200 Mg Tablet 400 MG PO DAILY (Reported) Lactobacillus Acidophilus (Probiotic) 1 Each Capsule 1 EACH PO DAILY (Reported) Levofloxacin (Levaquin) 750 Mg Tablet 750 MG PO DAILYAC Prescribed by: JODI DRAPER DO Hodges Carbonate (Hodges Carbonate) 300 Mg Cap 300 MG PO BID (Reported) Methotrexate Sodium (Methotrexate) 2.5 Mg Tablet 7.5 MG PO BID-once a week ( Reported) Takes on Wednesdays 3 tabs (7.5mg) in AM and 3 tabs (7.5mg) in PM As needed Acetaminophen (Extra Strength Non-Aspirin) 500 Mg Tablet 1,000 MG PO TID PRN PRN For Pain (Reported) Calcium Carbonate (Tums) 500 Mg Tab.chew 1,000 MG PO TID PRN PRN For Indigestion (Reported) Followup Plan Discharge Diet: No restrictions Discharge Activity: Other (gradually return to your normal daily activities) Follow-up Provider: Jay Marie MD Follow-up with PCP in: 1 week (if an appointment has not already been made please call to schedule an appointment) Time spent Greater than 35 minutes copies to: Jay Marie MD, Precious L DO Mar 18, 2016 11:00
[2016-03-18 11:39] VITALS: PULSE 90; RESP 26; O2SAT 98
--- NOTE | 2016-03-18 11:56 | NUR ---
Ready to go Patient stated at 0730 she was ready to go home. Notified .
--- NOTE | 2016-03-18 15:25 | NUR ---
Discharge Patient discharged at approximately 1310 to home with son. Patient given discharge packet to include: Two new prescriptions, next dose to be taken for medications clearly written and dated, educational material for Community Acquired Pneumonia and follow up appointment scheduled. Patient's IV's DC'd with both catheters intact, tele DC'd radiation monitor notified. Patient left with all belongings, escorted by MASTER CRAFTSMAN in wheelchair with son to the door.
[2016-03-19] MEDS ORDERED: levoFLOXacin 750 mg Tablet PO SCH (07:30)
== END 2016-03-18 13:09 | disposition home or self-care (01) | DRG 190 ==
LOC: SED 13:06 → PCC 16:28
PROVIDERS: ADMIT Internal Medicine; ATTEND Internal Medicine
PROC: 4A033B1 Measurement of Arterial Pressure, Peripheral, Percutaneous Approach (ICD-10-PCS; principal; 2016-03-16)
DX: J44.1 Chronic obstructive pulmonary disease with (acute) exacerbation (principal); J18.9 Pneumonia, unspecified organism; E87.3 Alkalosis; D64.9 Anemia, unspecified; M35.00 Sjogren syndrome, unspecified; M06.9 Rheumatoid arthritis, unspecified

== ENCOUNTER 2016-09-14 16:58 | Inpatient (IN) | payer MEDICARE, OTHER ==
[~2016-09-14] VITALS: Ht 167.6 cm; Wt 54.7 kg
[~2016-09-14 16:58] MED LIST changes: -ACET-2404 PO; +ACET-2561 PO; +ALBU8.5H2 INHALATION; -ALBUTHFA INH; +ASCO100089 PO; -AZIT250T4 PO; -BENZ-12 PO; +CALC500T9 PO; +DEX1 PO; -DXM4T PO; +FERR-83 PO; +HYDR200T5 PO; +LACT1CAP65 PO; +LEVO750T9 PO; +LIT300 PO; -LTH300C PO; +METH2.5T PO; -OMEP20TA86 PO; -TIOT18CA INH; -TUMS PO; +ZIT250 PO
[2016-09-14 17:00] VITALS: BP 109/60; PULSE 95; RESP 18; O2SAT 97
--- NOTE | 2016-09-14 18:02 | ED.REPORT ---
HPI-URI / Cough / Cold Date of Service Sep 14, 2016 ED Provider: History of Present Illness: 2 or 3 falls in less than a week. seen at urgent care clinic today. having copd excerbation . brett is primary care. uses albuterol 2 to 3 times a week. 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 Has a new cough, yellow . short of breath. reporting black stools also Nursing Notes Stated Complaint: PNEUMONIA/SENT FROM URGENT CARE Chief Complaint: Respiratory Complaints Nursing Notes Reviewed: Yes Allergies: Coded Allergies: Contrast Media (Verified Allergy, Mild, HIVES, 09/14/16) Sulfa (Sulfonamide Antibiotics) (Verified Allergy, Mild, Rash, 09/14/16) Uncoded Allergies: DIAZIDE (Allergy, Mild, Rash, 01/27/13) Scheduled Albuterol HFA (Proair HFA) 8.5 Gm Hfa.aer.ad 2 PUFFS INHALATION Q4H Ascorbic Acid (Vitamin C) 1,000 Mg Tab.chew 1,000 MG PO DAILY Azithromycin (Zithromax) 250 Mg Tablet 500 MG PO DAILY Dexamethasone (Dexamethasone) 1 Mg Tab 2 MG PO DAILY Ferrous Sulfate (Ferrous Sulfate) 325 Mg Tablet 650 MG PO QAM Hydroxychloroquine Sulfate (Hydroxychloroquine Sulfate) 200 Mg Tablet 400 MG PO DAILY Lactobacillus Acidophilus (Probiotic) 1 Each Capsule 1 EACH PO DAILY Levofloxacin (Levaquin) 750 Mg Tablet 750 MG PO DAILYAC [place] Carbonate ([place] Carbonate) 300 Mg Cap 300 MG PO BID Methotrexate Sodium (Methotrexate) 2.5 Mg Tablet 7.5 MG PO BID-once a week Takes on Wednesdays 3 tabs (7.5mg) in AM and 3 tabs (7.5mg) in PM Scheduled PRN Acetaminophen (Extra Strength Non-Aspirin) 500 Mg Tablet 1,000 MG PO TID PRN PRN For Pain Calcium Carbonate (Tums) 500 Mg Tab.chew 1,000 MG PO TID PRN PRN For Indigestion General Time Seen by MD: 18:02 Chief Complaint Cough, productive... (Yellow), Other (weak) Hx Obtained From: Patient Onset Occurred: 1 week ago Past Medical History Past Medical History Notes: stools black takes iron pills last visist in mar or april. Past Medical History COPD hx of Pneumonia, last episode 2003 shogun's disease rheumatoid arthritis Reports: Depression Past Surgical History denies Reports: Tubal ligation Smoking History Never Smoker Social History Alcohol Use: Denies alcohol use Drug Use: Denies drug use Other Social History: Good social support, Lives alone Occupation , lives by self in one story house 09/14/2016 Ambulatory Status Independent Review of Systems Basic Review of Systems : No dysuria, No frequency Psychiatric: Normal thought content Physical Exam Physical Exam Notes: Respiratory rate goes to 36 to 40 with any movement at all. Patient with clearly having increased work of breathing with any activity. Initial Vital Signs Vital Signs (First) Date Time Temp Pulse Resp B/P Pulse Ox O2 Delivery O2 Flow Rate FiO2 09/14/16 17:00 37.4 95 18 109/60 97 Room Air Initial VS: Reviewed, Vital signs normal Head / Eyes: Atraumatic, Normocephalic, PERRL Neck: Supple, Non-tender, Full range of motion Cardiovascular: Regular rate & rhythm, Heart sounds normal, Intact distal pulses Abdomen / GI: Soft, Non-tender, No guarding, No rebound, No distention Back: No CVA tenderness Lymphatic: No lymphadenopathy Extremities: Vascular intact, Neuro intact, No swelling, No tenderness Skin: Warm, Dry, No cyanosis Neurologic: Alert, Oriented, Nonfocal Psychiatric: Mood/affect normal, Behavior normal, Normal thought content General/Constitutional: Awake, Alert, No acute distress, Well appearing, Well developed, Well hydrated, Well nourished, Cooperative, Not toxic appearing Appearance / Presentation: Positive: Frail, Underweight ENT: Atraumatic, Airway patent, Mucous membranes moist, Pharynx NL, No peritonsillar abscess Respiratory / Chest: Atraumatic breath sounds greatly decreased bilateral faint exp wheezing. barrel chest formation obvious Head / Eyes: Atraumatic, Normocephalic, PERRL, EOMI Cardiovascular: Heart rate NL, Regular rhythm, Heart sounds NL Abdomen: Atraumatic, Soft, Non-tender stool is black but is quiac negative Interpretation & Diagnostics Lab Results Interpretation Result Diagram: 09/14/16 1826 09/14/16 1826 Test 09/14/16 18:17 09/14/16 18:26 Hold Purple Top Tube Received (Received) Hold Blue Top Tube Received (Received) Hold Red Top Tube Received (Received) Hold [place] Top Tube Received (Received) Hold Jacques Top Tube Received (Received) White Blood Count 16.2th/mm3 (3.8-10.1) Red Blood Count 3.54mil/mm3 (3.90-5.20) Hemoglobin 10.1g/dL (12.0-15.6) Hematocrit 32.7% (35.0-46.0) Mean Corpuscular Volume 92.4fL (81-100) Mean Corpuscular Hemoglobin 28.5pg (27.0-35.0) Mean Corpuscular Hemoglobin Concent 30.9% (32.0-37.0) Red Cell Distribution Width 16.2% (12.3-15.4) Platelet Count 365bil/L (150-400) Neutrophils (%) (Auto) 84.6% (40-74) Lymphocytes (%) (Auto) 6.2% (14-46) Monocytes (%) (Auto) 7.8% (4-12) Eosinophils (%) (Auto) 0.7% (0-5) Basophils (%) (Auto) 0.4% (0-3) Sodium Level 134mEq/L (134-144) Potassium Level 4.9mEq/L (3.5-5.2) Chloride Level 97mEq/L (97-108) Carbon Dioxide Level 18mmol/L (18-29) Blood Urea Nitrogen 27mg/dL (8-27) Creatinine 1.01mg/dL (0.57-1.00) Estimat Glomerular Filtration Rate 77mL/min (>59) Glucose Level 118mg/dL (60-99) Lactic Acid Level 1.0mmol/L (0.4-2.0) Calcium Level 9.3mg/dL (8.5-10.1) Total Bilirubin 0.3mg/dL (0.0-1.2) Aspartate Amino Transf (AST/SGOT) 37U/L (0-50) Alanine Aminotransferase (ALT/SGPT) 42U/L (0-32) Alkaline Phosphatase 71U/L (25-165) Troponin T 0.302ug/L (0.0-0.011) Total Protein 6.9g/dL (6.4-8.4) Albumin 3.8g/dL (3.4-5.0) X-Ray Interpretation Xray Interpretation: Patient Name: BRADLY HESS MR#: [id number] Location: [facility] Ordering Phys: Kinjal Rutledge [facility] Date of Service: 09/14/16 1625 PROCEDURE: X-RAY CHEST, TWO VIEWS ([id number]) INDICATIONS: COUGH. TECHNIQUE: 2 views of the chest were acquired. COMPARISON: [facility], CR, XR CHEST 2VW, 07/18/2016, 15:09. FINDINGS: Surgical changes and devices: None. Lungs and pleura: No pleural effusions or pneumothorax. Focal airspace opacity involving the left upper lobe. Bibasilar scarring unchanged. As before lung volumes are increased and diaphragms are flattened. Mediastinum: Mediastinal contours are normal. Heart size is normal. Bones and chest wall: No suspicious bony abnormalities. Soft tissues appear unremarkable. IMPRESSION: 1. Airspace opacity involving the left upper lobe likely pneumonia. Continued radiographic surveillance to resolution is recommended. 2. Lung volumes are increased suggesting COPD, correlate with pulmonary functions test. 3. Basilar scarring redemonstrated. Dictated by: Refugio Powell [facility] Interpreted: Rolf Alamo MD on 09/14/2016 at 16:36 Approved by: Rolf Alamo M.D. on 09/14/2016 at 17:16 Re-Eval/Medical Decision Med Decision/Clinical Course Med Decision/Clinical Course: 71 year old female with increased work of breathing and feeling weak for about 1 week. Patient lives alone and normally uses her albuterol inhaler about 2 to 3 times a week. Chest x-ray indicates a pneumonia with a WBC of 16. Troponin is elevated at 0.302. This will be followed. Paitent is being admited Discharge & Departure Impression: Primary Impression: CAP (community acquired pneumonia) Additional Impression: COPD with acute exacerbation Disposition: ADMITTED TO HOSPITAL Referrals: Jay Marie MD (PCP) EDSupervising Provider for APC: Jelani Pablo DO copies to: Jay Marie MD, Sue ARNP Sep 14, 2016 18:02
[2016-09-14 18:30] LABS: BASOPHILS % (AUTO) 0.4 % (0-3); EOSINOPHILS % (AUTO) 0.7 % (0-5); MONOCYTES % (AUTO) 7.8 % (4-12); Mean Corpuscular Hemoglobin 28.5 pg (27.0-35.0); Mean Corpuscular Volume 92.4 fL (81-100); NEUTROPHILS % (AUTO) 84.6 % (40-74); Platelet Count 365 bil/L (150-400)
[2016-09-14] MEDS ORDERED: Azithromycin Inj 500 MG in Dextrose 5% w/Vial Mate 250 ML IV ONE (18:40)
[2016-09-14] MEDS ORDERED: cefTRIAXone Inj 2,000 MG in Dextrose 5% Minibag Plus 50 ML IV ONE (18:40)
[2016-09-14 19:02] LABS: TROPONIN T 0.302 ug/L (0.0-0.011)
[2016-09-14 20:06] VITALS: BP 120/54; PULSE 88; RESP 22; O2SAT 99
[2016-09-14 20:25] VITALS: BP 120/54; PULSE 88; RESP 22; O2SAT 99
[2016-09-14] MEDS ORDERED: Polyethylene Glycol (PEG) 17 Gm Powder PO PRN (20:25)
[2016-09-14] MEDS ORDERED: Alum-Mag Hydrox-Simeth 30 mL Suspension PO PRN (20:25)
[2016-09-14 21:08] VITALS: BP 104/63; PULSE 91; RESP 18; O2SAT 100
[2016-09-14] MEDS ORDERED: ASCO-294 PO ×2 (21:26→21:30)
[2016-09-14] MEDS ORDERED: FERR-83 PO (21:26)
[2016-09-14] MEDS: predniSONE 20 mg Tablet PO SCH (21:30)
[2016-09-14] MEDS ORDERED: AZTH50T PO (21:30)
[2016-09-14] MEDS ORDERED: CARB25DR BOTH_EYES (21:30)
[2016-09-14] MEDS ORDERED: [UNRECOGNIZED DRUG - CODE] PO (21:30)
[2016-09-14] MEDS ORDERED: 0.9% Sodium Chloride 1,000 ML IV SCH (21:35)
[2016-09-14] MEDS ORDERED: Albuterol 2.5 mg/3 mL Inhalation Solution NEB PRN (21:40)
[2016-09-14] MEDS ORDERED: Albuterol-Ipratropium 3 mL Inhalation Solution NEB PRN (21:40)
--- NOTE | 2016-09-14 21:43 | PCM.HPMED ---
Subjective Date of Service Sep 14, 2016 Primary Provider: Admitting Physician: Roger Wesley MD Primary Care Physician: Jay Marie MD Attending Physician: Roger Wesley MD Chief Complaint: Weakness, falls at home. History of Present Illness: Katya Yeboah is a 71 year old lady with a past medical history significant for Sjogren's, Rheumatoid Arthritis, COPD, Aortic Stenosis who presents to the [facility] Emergency Department with 1 week history of weakness and 2x falls at home. She visited the urgency care today and was noted to be febrile 38.4 and CXR showed "pneumonia." Patient reports using albuterol much more often than usual. She reports 1 week increased use of air[place] She reports mild dizziness, decreased appetite, weakness, shortness of breath, mildly productive cough (acute on chronic). She denies syncope, headache, increased thirst, fever, chills, chest pain, abdominal pain, diarrhea, constipation or dysuria. In the ED - Vitals: T -37.1, HR - 95, RR - 18, BP 109/60, 97 % RA. Notable LAbs: WBC - 16.2, N 84%, Hgb 10.1, Creat 1.01, Trop - 0.302 1. Airspace opacity involving the left upper lobe likely pneumonia. Continued radiographic surveillance to resolution is recommended. 2. Lung volumes are increased suggesting COPD, correlate with pulmonary functions test. 3. Basilar scarring redemonstrated. orte is primary care. She lives alone in a 1 story house. In the ED she received: Aspirin, Azithromycin, Ceftriaxone, Review of Systems: A comprehensive review of systems was conducted with the patient and found to be negative except as above in the History of Present Illness. Allergies Coded Allergies: Contrast Media (Verified Allergy, Mild, HIVES, 09/14/16) Sulfa (Sulfonamide Antibiotics) (Verified Allergy, Mild, Rash, 09/14/16) Uncoded Allergies: DIAZIDE (Allergy, Mild, Rash, 01/27/13) Home Medications Scheduled Albuterol HFA (Proair HFA) 8.5 Gm Hfa.aer.ad 2 PUFFS INHALATION Q4H Ascorbic Acid (Vitamin C) 1,000 Mg Tab.chew 1,000 MG PO DAILY Azithromycin (Zithromax) 250 Mg Tablet 500 MG PO DAILY Dexamethasone (Dexamethasone) 1 Mg Tab 2 MG PO DAILY Ferrous Sulfate (Ferrous Sulfate) 325 Mg Tablet 650 MG PO QAM Hydroxychloroquine Sulfate (Hydroxychloroquine Sulfate) 200 Mg Tablet 400 MG PO DAILY Lactobacillus Acidophilus (Probiotic) 1 Each Capsule 1 EACH PO DAILY Levofloxacin (Levaquin) 750 Mg Tablet 750 MG PO DAILYAC [place] Carbonate ([place] Carbonate) 300 Mg Cap 300 MG PO BID Methotrexate Sodium (Methotrexate) 2.5 Mg Tablet 7.5 MG PO BID-once a week Takes on Wednesdays 3 tabs (7.5mg) in AM and 3 tabs (7.5mg) in PM Scheduled PRN Acetaminophen (Extra Strength Non-Aspirin) 500 Mg Tablet 1,000 MG PO TID PRN PRN For Pain Calcium Carbonate (Tums) 500 Mg Tab.chew 1,000 MG PO TID PRN PRN For Indigestion PMH COPD hx of Pneumonia, last episode 2003 shogun's disease rheumatoid arthritis Reports: Depression Aortic Stenosis Surgical History Reports: Tubal ligation Family History Patient couldn't recall Social History Hx Alcohol Use: Yes (OCC) Hx Substance Use: No Hx Tobacco Use: No Smoking Status: Never Smoker Exam Vital Signs Vital Sign - Last Date Time Temp Pulse Resp B/P Pulse Ox O2 Delivery O2 Flow Rate FiO2 09/14/16 20:25 37.1 88 22 120/54 99 Room Air Exam General: Frail and thin appearing elderly lady lying in bed in no acute distress , well-nourished, appropriately interactive HEENT: Normocephalic, atraumatic. External ears without defect. Pupils equal, round, and reactive to light and accommodation. Anicteric sclerae, moist conjunctivae, and no lid lag. Oropharynx free of erythema and cobble stoning with moist mucosa. Neck: Supple with full range of motion. No jugular venous distension. No bruits. No lymphadenopathy or thyromegaly. Cardiovascular: Regular rate and rhythm with no rubs, or gallops appreciated. Mild systolic flow murmur. Pulmonary: Clear to auscultation bilaterally with mild velcro-cuff crackles at the bases, no wheezes, or rhonchi. Increased respiratory effort with complete use of accessory muscles. Abdomen: Bowel tones present. Soft, nontender, nondistended. No hepatosplenomegaly or masses appreciated. Extremities: No clubbing, cyanosis, edema, or lymphadenopathy appreciated. Skin: Normal temperature, turgor, and texture; no rash, ulcers, or subcutaneous nodules appreciated. Neurological: Cranial nerves grossly intact. Normal muscle strength, tone, and bulk. Reflexes, coordination, and sensory function within normal limits. No known gait impairment. Psychiatric: Normal mood and affect. Alert and oriented to person, place, and time. Lab and Diagnostics Result Diagram: 09/14/16 1826 09/14/16 182 X-Rays, CTs and MRIs X-RAY CHEST, TWO VIEWS IMPRESSION: 1. Airspace opacity involving the left upper lobe likely pneumonia. Continued radiographic surveillance to resolution is recommended. 2. Lung volumes are increased suggesting COPD, correlate with pulmonary functions test. 3. Basilar scarring redemonstrated. Approved by: Rolf Alamo M.D. on 09/14/2016 at 17:[address] CHEST WITHOUT CONTRAST IMPRESSION: 1. Stable pulmonary nodules within the right upper lobe and anterior lingula and right middle lobe when compared with the prior study dated 08/14/15 and the study dated 05/13/15. Bronchiectasis is also present within the lingula and right middle lobe suggesting pulmonary scarring. 2. New, focal tree in bud nodules within the lateral aspect of the left upper lobe and within the posterior aspect of the lingula. These findings can be associated with endobronchial spread of infection. However, neoplasm cannot be excluded and three-month followup CT is recommended to ensure stability of this finding (please see followup guidelines below). 3. Geographic groundglass radiopacities at the lung bases. This is a nonspecific finding and can be associated with air trapping or pulmonary edema. Attention should be directed to this on future surveillance scans. Fleischner Society criteria for SOLID lung nodule followup. Nodule size (mm)Low-risk patientHigh-risk patient<6 (single or multiple)No routine followup.Optional CT at 12 months. 6-8 (single or multiple)CT at 6-12 months, then optional CT at 18-24 mo.CT at 6-12 months, then CT at 18-24 months. >8 (single)CT at 3 months, PET-CT, or biopsy. Same as for low-risk pts. >8 (multiple)CT at 3-6 months, then optional CT at 18-24 mo.CT at 3-6 months, then CT at 18-24 months. Fleischner Society criteria for SUB-SOLID lung nodule followup. Solitary pure ground-glass nodules<6 mm (ground glass or part solid)No followup needed. 6 mm or larger (ground glass)CT at 6-12 months to confirm persistence, then CT every 2 years until 5 years.6 mm or larger (part solid)CT at 3-6 months to confirm persistence, then annual CT until 5 years if unchanged and solid component remains <6 mm. Multiple sub-solid nodules<6 mmCT at 3-6 months, then CT consider at 2 & 4 years for high risk patients. [address] at 3-6 months. Subsequent management based on most suspicious lesions. Recommendations do not apply to lung cancer screening, patients with immunosuppression, or patients with known primary cancer. Approved by: Ana Harding M.D. on 09/05/2016 at 15:12 Assessment & Plan Katya Yeboah is a 71 year old lady with a past medical history significant for Sjogren's, Rheumatoid Arthritis, COPD, Aortic Stenosis who presents to the [facility] Emergency Department with 1 week history of weakness and 2x falls at home. She is being treated for pneumonia vs COPD exacerbation. Dyspnea on exertion secondary to COPD exacerbation with possible pneumonia, present on admission. Active. - DDx includes Pulmonary embolism - WBC elevated, however patient is on Dexamethasone chronically. - Wells score - 0. Will not obtain CT PE. - CXR as above. - Ceftriaxone / Azithromycin given in ED. Will continue. - Sputum Blood cx ordered. - Legionella/S. Pneumonia antigens pending. - Procalcitonin elevated 0.35. - Viral PCR ordered. MRSA swab ordered. - Prednisone 40 mg Daily 5 days. - DuoNebs Q4HWA, Albuterol Q2H PRN. Generalized weakness, present on admission. Active. - Likely 2nd to above. - TSH/T4 pending. - UA / cx ordered. - Orthostatics ordered. Elevated troponins, present on admission. Active. - Possibly demand ischemia. - EKG reviewed - NSR, No ST elevations / depressions. Twave inversion V1, RBBB. - Tele on. - ASA given. - Trending troponins Q6H. - O2 on, titrate between 88 - 92% Chronic Conditions. Rheumatoid Arthritis - Continue home medications. - Hydroxychloroquine, Azathioprine, Methotrexate. Sjogrens - Continue home medications. Normocytic Anemia.Stable. - Patient reports "black stools" - Stool Guaiac negative. - Hgb stable 10.1. - Continue home Ferrous Sulfate. Pulmonary nodules - CT from 10 days ago outpatient as above. Acetaminophen for mild pain when necessary. Bowel regimen Senna and MiraLAX scheduled and PRN. Zofran when necessary for nausea and vomiting. SubQ heparin for now. SCDs in place. High-risk medications: NONE. Patient Status: Patient is admitted under inpatient status with expected length of stay greater than 2 midnights due to severity of presenting symptoms, risk of adverse event, and complexity of treatment plan. Attending Statement The patient was seen and examined together with Dr. Garcia on 09/14 and I agree with the history, exam and plan as outlined in the note above. MUNA GARCIA DO Sep 14, 2016 21:03 Roger Wesley MD Sep 14, 2016 23:34
--- NOTE | 2016-09-14 22:30 | NUR ---
Med Refusal Pt refused Evening Rx of Aspirin due to it is contraindicated with [place] and refused prednisone because Im not going to even start on that, because I wont continue to take it at home. She was open to discussing this during morning rounds with physician, however, not tonight.
--- NOTE | 2016-09-14 22:46 | NUR ---
Admit Pt arrived onto unit approx 2107 after report given by Adenike London RN. Pt oriented to room and unit, in stable condition, 100% on RA, no SOB. Eager to get home tomorrow. Admit completed by admit nurse. Pt placed on tele per order. Abx running that were started in ED. Pt uses call light appropriately. Awaiting evening medications from pharmacy. Will continue to monitor.
[2016-09-14 23:23] LABS: APPEARANCE,URINE CLEAR (CLEAR,HAZY); COLOR,URINE YELLOW (YELLOW); OCCULT BLOOD,URINE TRACE (NEGATIVE); UROBILINOGEN,URINE NORMAL (NORMAL)
[2016-09-15] VITALS (10 sets, daily range): BP systolic 95–130; BP diastolic 50–69; PULSE 76–95; RESP 18–24; O2SAT 93–98
[2016-09-15] MEDS: Heparin 5,000 Unit/mL Inj SUBQ SCH ×3 (01:12→18:02)
--- NOTE | 2016-09-15 01:43 | NUR ---
Fever 0130 Pt felt hot after ambulating to the restroom. Axillary temp of 102.2. Tylenol 650mg and ice water per patient request. Will recheck. Addendum: 09/15/16 at 0255 by XENIA STODDARD RN Reassessment - axillary temp 98.5
--- NOTE | 2016-09-15 02:55 | NUR ---
Abdominal cramping/gas Per patient, this is fairly common for her and either 2 beano pills or simethicone is effective. Simethicone per order administered (after checking with pharmacy, due to the comment in MAR stating not to give during middle of the night). Per pharmacy, ok to give to patient.
--- NOTE | 2016-09-15 05:38 | NUR ---
VTach Per [employer] Fiddle Player, pt had run of Vtach at 0521. Physician paged by charge nurse and is aware. Basic Metabolic and Magnesium ordered. Pt assymptomatic and resting comfortably in bed. Vital signs stable with 123/62, HR 77, Temp 36.7, 96% on RA. Will closely monitor patient and patient is aware of using call light if any symptoms occur.
[2016-09-15] MEDS ORDERED: Albuterol-Ipratropium 3 mL Inhalation Solution NEB SCH (06:00)
--- NOTE | 2016-09-15 09:20 | NUR ---
Social Work: Initial Assessment Data: Pt is a 71 y/o female admitted for pneumonia, hypoxia, COPD. Pt's PCP is Dr Marie, pt's insurance is Medicare with [employer]. EMR reviewed. Readmit score not listed. ELECTRICAL PANEL BUILDER met with pt at bedside, role explained. Pt states that she lives in a single story home in [facility] where she uses no DME, drives, has no hx of HH or SNF, and is not a caregiver. No LCT or VA benefits. Pt currently on IVABX, ELECTRICAL PANEL BUILDER will continue to follow regarding ABX needs at d/c. Assessment: Pt who is independent at baseline, currently capable of self care. Plan: Pt will d/c home via POV when medically stable, no d/c planning needs identified at this time. ELECTRICAL PANEL BUILDER will continue to follow regarding ABX needs or other d/c needs. DELIA Saxena Addendum: 09/15/16 at 0924 by MADDIE GOMEZ Amended: Links added.
[2016-09-15] MEDS: predniSONE 20 mg Tablet PO SCH (09:55)
[2016-09-15] MEDS: Hydroxychloroqine 200 mg Tablet PO SCH (09:56)
--- NOTE | 2016-09-15 12:34 | NUR ---
Abdominal Discomfort: Patient requesting Simethicone for gas pain/cramping. Relayed that medications was ordered once a day and patient had a dose 6hrs prior, but would speak with MD about increasing. Patient upset and stated "I want one period!" Discussed with MD. Simethicone order increased to QID. Administered.
--- NOTE | 2016-09-15 12:51 | DRSVH ---
[facility] [address] [place] [address] Echocardiogram Report Name: BRADLY HESS Date: 017 Height: 66 in Hospital Exam Location: [facility] Weight: 122 lb Gender: Female BSA: 1.6 m2 : 1945 Age: 71 yrs BP: 123/62 mmHg Reason For Study: Dyspnea Ordering Physician: Anselmo RaePerformed By: Hawk Barajas Referring Physician: MUNA MARTELL Interpretation Summary Left ventricular wall thickness is mildly increased. Left ventricular systolic function is normal without focal wall motion abnormalities. The ejection fraction is estimated to be 50-55%. Assessment of diastolic parameters indicates a relaxation abnormality of the left ventricle, consistent with normal filling pressures. The right ventricle is normal in size, thickness and function. The right ventricular systolic pressure is estimated at 31 mmHg assuming a right atrial pressure of 8 mm Hg. The left atrium is moderately dilated. Right atrial size is normal. There is no significant valvular heart disease. The ascending aorta is moderately enlarged. There is a small loculated pericardial effusion. No significant changes since 03/17/2016. Procedure: A two-dimensional transthoracic echocardiogram with color flow and Doppler was performed. The study quality was technically good. Comparison is made with the echocardiogram of 03/17/16. The patient was in normal sinus rhythm during the exam. Left Ventricle: Left ventricular wall thickness is mildly increased. The left ventricle is normal in size. Left ventricular systolic function is normal without focal wall motion abnormalities. The ejection fraction is estimated to be 50-55%. Assessment of diastolic parameters indicates a relaxation abnormality of the left ventricle, consistent with normal filling pressures. Right Ventricle: The right ventricle is normal in size, thickness and function. Atria: The left atrium is moderately dilated. Right atrial size is normal. The interatrial septum is intact with no evidence for an atrial septal defect. Mitral Valve: The mitral valve leaflets are slightly calcified. There is trace mitral regurgitation. Aortic Valve: The aortic valve is trileaflet. The aortic valve is mildly calcified. There is no hemodynamically significant valvular aortic stenosis. There is trace aortic regurgitation. Tricuspid Valve: There is mild tricuspid regurgitation. The right ventricular systolic pressure is estimated at 31 mmHg assuming a right atrial pressure of 8 mm Hg. Pulmonic Valve: The pulmonic valve leaflets are thin and pliable; valve motion is normal. There is trace pulmonic regurgitation. There is no significant valvular heart disease. Great Vessels: The aortic root is normal size. The ascending aorta is moderately enlarged. The pulmonary artery is normal size. The IVC is dilated (diameter is greater than 2.1 cm) yet it collapses greater than 50% with a sniff. This suggests a right atrial pressure of 8 mm Hg. Pericardium/ Pleura There is a small loculated pericardial effusion. There is no pleural effusion. MMode/2D Measurements & Calculations LVIDd: 4.5 cm RA long axis LVOT diam: 2.1 cm LVIDs: 3.1 cm LA A2 area: 22.1 cm AoV Opening FS: 30.9 % LA A4 area: 20.6 cm RA area EPSS: 0.54 cm LA length (vol) Ao root diam IVSd: 1.1 cm : 15.3 cm LVPWd: 1.1 cm LA vol: 76.3 ml RA vol asc Aorta Diam LA vol index : 41.2 ml RA Ao Arch Diam (Prox : 25.4 mm2 Trans): 3.0 cm IVC diam: 2.5 cm LV oh. diameter/BSA LV sys. diameter/BSA RVD1 (basal) TAPSE: 2.0 cm (cm/m^2): 2.8 (cm/m^2): 1.9 Doppler Measurements & Calculations Ao V2 max MV E max rian MV E/A: 0.85 TR max rian : 193.8 cm/sec : 75.0 cm/sec Med Peak E' Rian : 241.8 cm/sec Ao max P.0 mmHg MV A max rian TR max PG Ao mean P.8 mmHg : 88.0 cm/sec E/E' med: 13.3 : 23.4 mmHg LVOT Max Rian Lat Peak E' Rian PA V2 max : 109.2 cm/sec : 88.0 cm/sec E/E' lat: 9.4 PA mean PG JOSELYN(I,D): 2.0 cm E/e' average : 1.8 mmHg sev ratio: 0.57 MV dec time: 0.23 sec Ao V2 mean LV V1 max PG PA V2 mean : 140.3 cm/sec : 64.3 cm/sec Ao V2 VTI: 37.6 cmLV V1 VTI: 21.5 cmPA pr(Accel) : 18.6 mmHg JOSELYN(V,D): 2.0 cm2 JOSELYN indexed to BSA (cm^2/m^2): 1.2 Reading Physician:JAYCEE
--- NOTE | 2016-09-15 13:36 | PCM.PNMED ---
Subjective Date of Service Sep 15, 2016 Subjective Patient is seen and examined . She is sleeping with her multiple open, snoring. She appears pale and thin. She states that she went to the urgent care because of falls. She has suffered 2 falls in the same day, could not get up from her comorbid due to weakness. She states that her legs become very weak , give away and then she falls. She does not know why her PCP a CT scan on . She has no cough or sputum. She has been anemic for some time now, her PCP has done workup but they do not know the cause. She has never needed blood transfusions. States she wants to go home as soon as possible, she has no other concerns. Telemetry monitoring this 5:30 am revealed 28 beats off V. tach, highest heart rate in the 140's over 11 sec. Exam Vital Signs Vital Sign - Last Date Time Temp Pulse Resp B/P Pulse Ox O2 Delivery O2 Flow Rate FiO2 09/15/16 10:41 82 09/15/16 10:33 37.4 18 108/57 97 Room Air Intake and Output 09/14/16 09/14/16 09/15/16 Cumulative From/Thru 15:00 23:00 07:00 09/14/16 17:00 - 09/15/16 05:56 Intake Total 660 ml 300 ml 960 ml Output Total 750 ml 750 ml Balance 660 ml -450 ml 210 ml Intake Oral 160 ml 300 ml 460 ml IV Total 500 ml 500 ml Output Urine Total 750 ml 750 ml # Voids 1 1 # Bowel Movements 1 1 Exam General: Frail and thin appearing elderly lady lying in bed in no acute distress , well-nourished, appropriately interactive HEENT: Normocephalic, atraumatic. Neck: Supple with full range of motion. No jugular venous distension. Cardiovascular: Regular rate and rhythm with no rubs, or gallops appreciated. 1 + systolic flow murmur. Pulmonary: Clear to auscultation bilaterally with mild velcro-cuff crackles at the bases, no wheezes, or rhonchi. Abdomen: Bowel tones present. Soft, nontender, nondistended. No hepatosplenomegaly or masses appreciated. Extremities: No clubbing, cyanosis, edema, or lymphadenopathy appreciated. Skin: Normal temperature, turgor, and texture; no rash, ulcers, or subcutaneous nodules appreciated. Neurological: No focal deficits Psychiatric: Normal mood and affect. Alert and oriented to person, place, and time. IVs and Medications IV Fluids NSS 60 cc/hr Medications Reviewed: Medications were reviewed in detail Lab and Diagnostics Result Diagram: 09/15/1647 09/15/1647 X-Rays, CTs and MRIs X-RAY CHEST, TWO VIEWS IMPRESSION: 1. Airspace opacity involving the left upper lobe likely pneumonia. Continued radiographic surveillance to resolution is recommended. 2. Lung volumes are increased suggesting COPD, correlate with pulmonary functions test. 3. Basilar scarring redemonstrated. Approved by: Rolf Alamo M.D. on 09/14/2016 at 17:[address] CHEST WITHOUT CONTRAST IMPRESSION: 1. Stable pulmonary nodules within the right upper lobe and anterior lingula and right middle lobe when compared with the prior study dated 08/14/15 and the study dated 05/13/15. Bronchiectasis is also present within the lingula and right middle lobe suggesting pulmonary scarring. 2. New, focal tree in bud nodules within the lateral aspect of the left upper lobe and within the posterior aspect of the lingula. These findings can be associated with endobronchial spread of infection. However, neoplasm cannot be excluded and three-month followup CT is recommended to ensure stability of this finding (please see followup guidelines below). 3. Geographic groundglass radiopacities at the lung bases. This is a nonspecific finding and can be associated with air trapping or pulmonary edema. Attention should be directed to this on future surveillance scans. Fleischner Society criteria for SOLID lung nodule followup. Nodule size (mm)Low-risk patientHigh-risk patient<6 (single or multiple)No routine followup.Optional CT at 12 months. 6-8 (single or multiple)CT at 6-12 months, then optional CT at 18-24 mo.CT at 6-12 months, then CT at 18-24 months. >8 (single)CT at 3 months, PET-CT, or biopsy. Same as for low-risk pts. >8 (multiple)CT at 3-6 months, then optional CT at 18-24 mo.CT at 3-6 months, then CT at 18-24 months. Fleischner Society criteria for SUB-SOLID lung nodule followup. Solitary pure ground-glass nodules<6 mm (ground glass or part solid)No followup needed. 6 mm or larger (ground glass)CT at 6-12 months to confirm persistence, then CT every 2 years until 5 years.6 mm or larger (part solid)CT at 3-6 months to confirm persistence, then annual CT until 5 years if unchanged and solid component remains <6 mm. Multiple sub-solid nodules<6 mmCT at 3-6 months, then CT consider at 2 & 4 years for high risk patients. [address] at 3-6 months. Subsequent management based on most suspicious lesions. Recommendations do not apply to lung cancer screening, patients with immunosuppression, or patients with known primary cancer. Approved by: Ana Harding M.D. on 09/05/2016 at 15:12 Assessment & Plan Katya Yeboah is a 71 year old lady with a past medical history significant for Sjogren's, Rheumatoid Arthritis, COPD, Aortic Stenosis who presents to the [facility] Emergency Department with 1 week history of weakness and 2x falls at home. She is being treated for pneumonia vs COPD exacerbation. Dyspnea on exertion secondary to COPD exacerbation with possible pneumonia, present on admission. Active. - DDx includes Anemia, Pulmonary embolism and CAD - WBC trended down since admission, (16.2--> 11.6) however patient is on Dexamethasone chronically. - Wells score - 0. Will not obtain CT PE. - CXR as above. - Ceftriaxone / Azithromycin given in ED. Will continue. - Sputum cultures are ordered but not collected. Blood cx showed no growth to date. RSV panel is negative - Legionella/S. Pneumonia antigens were ordered and negative - Procalcitonin elevated 0.35-->0.41 - Viral PCR ordered. MRSA swab ordered. - Prednisone 40 mg Daily 5 days. - DuoNebs Q4HWA, Albuterol Q2H PRN. - Pulmonology consult will be ordered - Reviewed patient's visit report on [facility]. Generalized weakness, present on admission. Active. - Likely 2nd to above and anemia. - TSH/T4 are within normal limits. - UA is negative - Orthostatics ordered. Negative for orthostatic hypotension. Elevated troponins, present on admission. Active. - Possibly demand ischemia. - EKG reviewed - NSR, No ST elevations / depressions. Twave inversion V1, RBBB. - Tele on. - ASA given. - Trending troponins Q6H. - O2 on, titrate between 88 - 92% - Echocardiogram was performed this a.m.: "Left ventricular wall thickness is mildly increased. The ejection fraction is estimated to be 50-55%. Assessment of diastolic parameters indicates a relaxation abnormality of the left ventricle, The right ventricle is normal in size, thickness and function. The right ventricular systolic pressure is estimated at 31 mmHg assuming a right atrial pressure of 8 mm Hg. The left atrium is moderately dilated. There is a small loculated pericardial effusion. No significant changes since 03/17/2016." - Upon re-review it appears that patient has had significant troponin elev at the time of admission and no follow up troponins were ordered. Echo showed no wall motion abn. Discussed case over the phone with Dr. Hummel on 09/15 PM, recommends checking the troponins, heparinize if there is concern with trop elev , and following up with a nuclear stress test when her pneumonia is adequately treated. Optimize therapy with ASA, beta alma and ACEI. - Metoprolol 12.5 BID was added during rounding on 09/15. - Will go ahead and add aspirin, will hold lisinopril at this time due to low BP. Chronic Conditions. Rheumatoid Arthritis - Continue home medications. - Hydroxychloroquine, Azathioprine, Methotrexate. Sjogrens - Continue home medications. Normocytic Anemia.Stable. - Patient reports "black stools" - Stool Guaiac negative. - Hgb stable 10.1. - Continue home Ferrous Sulfate. -- Ordered Iron Panel, Retic count, B12 and folate Pulmonary nodules - CT from 10 days ago outpatient as above. - Patient states that she missed a pulmonology appointment at Dr. garcia, we will order a pulmonology consult. Acetaminophen for mild pain when necessary. Bowel regimen Senna and MiraLAX scheduled and PRN. Zofran when necessary for nausea and vomiting. SubQ heparin for now. SCDs in place. High-risk medications: NONE. Patient Status: Patient is admitted under inpatient status with expected length of stay greater than 2 midnights due to severity of presenting symptoms, risk of adverse event, and complexity of treatment plan. Time spent 35 min Bekah [place] DO Sep 15, 2016 13:08
[2016-09-15] MEDS ORDERED: 0.9% Sodium Chloride 1,000 ML IV SCH (18:15)
[2016-09-15] MEDS: cefTRIAXone Inj 2,000 MG in Dextrose 5% Minibag Plus 50 ML IV SCH (20:13)
[2016-09-15 22:31] LABS: TROPONIN T 0.111 ug/L (0.0-0.011)
[2016-09-15 22:45] LABS: Unsaturated Iron Binding 119.8 ug/dL
[2016-09-16] VITALS (11 sets, daily range): BP systolic 110–124; BP diastolic 59–66; PULSE 66–86; RESP 18–27; O2SAT 95–100
[2016-09-16] MEDS: Heparin 5,000 Unit/mL Inj SUBQ SCH ×2 (01:31→08:30)
--- NOTE | 2016-09-16 02:30 | NUR ---
Critical Lab Values/Activity Lab reports at 2230 of critical lab values, CKMB 15.4 and Trop 0.111. Night hospitalist notified. No new orders at this time. Patient A&OX3 and pleasant this evening. Complains of 1-2/10 abdominal pain, that she says is associated with her bowel condition. Denies CP, but complains of SOB, which she states is normal for here. Tele reports SR 68. Up with SBA to the bathroom. NS running at 60cc/hr. Bed is locked/low position. Call light with reach. Will continue to monitor and continue Q1 hour checks. Addendum: 09/16/16 at 0244 by MELLY ESQUIVEL RN Correction: Tele monitor reports SR 80's with IVCD
[2016-09-16 04:26] LABS: TROPONIN T 0.149 ug/L (0.0-0.011)
[2016-09-16 07:47] LABS: Magnesium 2.3 mg/dL (1.6-2.6)
[2016-09-16] MEDS: predniSONE 20 mg Tablet PO SCH (08:24)
[2016-09-16] MEDS: Hydroxychloroqine 200 mg Tablet PO SCH (08:25)
--- NOTE | 2016-09-16 09:10 | NUR ---
TIMMY signed DELIA Saxena
[2016-09-16 10:21] LABS: TROPONIN T 0.179 ug/L (0.0-0.011)
[2016-09-16] MEDS ORDERED: Heparin 5,000 Unit/mL Inj IVPUSH ONE (11:50)
[2016-09-16] MEDS ORDERED: Heparin 25K Unit/500mL 0.45 NS 25,000 UNIT in IV Premix 1 EACH IV SCH (11:50)
--- NOTE | 2016-09-16 15:59 | CONS ---
[address] [address] CONSULTATION REPORT PATIENT: BRADLY HESS : 1945 MR#: [id number] ADMIT: 09/14/2016 JOB ID: [id number] CARDIOLOGY CONSULTATION--INITIAL INPATIENT EVALUATION: DATE OF EVALUATION: Friday, September 16, 2016 CONSULTING PHYSICIAN: Cardiology--Bubba White MD. PROBLEMS: 1. Elevated Troponin: Troponin incidentally noted to be 0.3 on admission, then downtrending to 0.1; and question of acute coronary syndrome (ACS). No other direct evidence of cardiac involvement including no chest pain; unremarkable ECG without acute ischemic change; and echo shows no wall motion defect. 2. Pneumonia: Left lower lobe infiltrate, new from previously. Febrile to 39 degrees Celsius and elevated white count of 16,000. 3. COPD: Chronic dyspnea and hyperinflated lungs on x-ray, and evidence of bronchiectasis with a chronic cough; and yellow sputum. CORONARY ARTERY DISEASE RISK FACTORS: 1. No history of treated hypertension. 2. No history of treated hyperlipidemia. 3. No history of diabetes. 4. Lifetime nonsmoker. 5. Note positive family history of premature coronary disease. Poorly documented; but father in his 50s probably with heart disease. OTHER PROBLEMS: Rheumatologic Disorders: Sjogren syndrome and methotrexate treated rheumatoid arthritis. CHIEF COMPLAINT: Elevated troponin. HISTORY OF PRESENT ILLNESS: PRESENTATION AND HOSPITAL COURSE: I am glad to meet this 71-year-old woman who was admitted to the hospital on September 14, 2016, now approaching 48 hours ago. Cardiology consultation is requested because of the unexpected finding of an elevated troponin in the setting of an apparent primary clinical diagnosis of pneumonia; and also multiple comorbidities, but no other evidence had otherwise suggested acute coronary disease. I spoke at length with the patient including about her symptoms regarding possible ischemic symptoms and COPD. She initially presented to her primary physician in the outpatient setting and was referred to the emergency department. Her chief complaint initially was severe weakness and two falls. She tells me that the two falls occurred within the past week, but not on the day of admission or the day before. They both occurred at night when she stood up to go to the bathroom to urinate. She did not feel tachypalpitation, presyncope, syncope, or dizziness. She felt her legs buckle. She may have bumped her forehead mildly on one fall. Her additionally her primary presenting symptom was extreme weakness. She could barely get out of the chair and stand up, even with "pushing with my hands." Generally she is fairly active given her underlying rheumatoid illness. Interestingly, she walks 20 minutes on a treadmill at 2 miles an hour on flat level. She drives, she carries groceries, and was overall functional class 2; she work about 10 or 15 minutes in her yard. Her primary chronic limitation is due to exertional dyspnea which is mild to moderate; and not currently worse. Additionally she did not notice a change in her dyspnea or her lung symptoms including cough and sputum production that would have suggested to her an acute respiratory syndrome. She does not feel febrile or chills. In the hospital she has been generally stable. She thinks her dyspnea is at baseline. Discharge today was being considered. Pneumonia: I had the opportunity to discuss her case at length with the pulmonary consultants. Their impression seems to be that this is a fairly straightforward pneumonia of the left lower lobe with an infiltrate, new compared to previously. This appears to be in the setting of underlying significant COPD and bronchiectasis. Additionally there is a question of nodules raising the question of malignancy. I note from the CT scan that the nodules are stable, although the differential diagnosis of the bronchiectasis includes malignancy not excluded. CARDIAC HISTORY: The patient tells me she does not have a history of prior known heart disease. She does not have ischemic symptoms. She does not have exertional chest discomfort. She does have some pain in her back with exertion that she attributes to her rheumatoid disease that is chronic, not worse, and is relieved when she stops. The question was also raised regarding stomach complaints as a possible ischemic equivalent. 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 She takes Beano. Her main symptom is lower abdominal cramping. She has indigestion that is very rare, not exertional, and has not been present recently. She has not had any other suspicious severe symptoms that would suggest heart attack including no nausea or diaphoresis otherwise. Regarding congestive symptoms, she does not have nocturnal dyspnea, although she sleeps nearly upright because of the discomfort from her rheumatoid arthritis. She does not have edema. Regarding arrhythmia, she has no history of arrhythmia or arrhythmic symptoms including tachy palpitation, presyncope, or syncope. She notes some lightheadedness which she associates with her rheumatoid arthritis, which she avoids if she holds her neck straight when she stands up. Note she did have a 28 beat run of ventricular tachycardia noted 24 hours ago. Regarding other possible underlying vascular disease, there is no history of CVA or current symptoms of TIA. No claudication. Regarding possible dual antiplatelet therapy, there are no current bleeding symptoms or anticipated upcoming surgery. She reports reliable to take mandatory medicines if needed. ALLERGIES: RECORDED ALLERGIES INCLUDE SULFA, DYAZIDE, AND CONTRAST MEDIA. She describes contrast media allergy to include hives from an IVP in the remote past. She had a CT recently as part of a pulmonary workup on September 05; and she does not remember pretreatment and had no problem. Note she has received prednisone twice in the past two days this admission. MEDICATIONS: Home medications are listed to include: 1. Albuterol ProAir two puffs q.6. 2. Vitamin C. 3. Azithromycin 250 mg; 500 mg daily. 4. Dexamethasone 2 mg daily. 5. Ferrous sulfate 325 mg, 650 mg q.a.m. 6. Hydrochloroquine 400 mg daily. 7. Levofloxacin 750 mg daily. 8. Flaxton carbonate 300 mg b.i.d. 9. Methotrexate 7.5 mg p.o. b.i.d. once a week. In the hospital a heparin IV infusion has been started as well as aspirin. PAST MEDICAL HISTORY: 1. History of pneumonia last in 2003. 2. History of depression. 3. History of aortic stenosis with no significant aortic stenosis on current echo. 4. History of tubal ligation. REVIEW OF SYSTEMS: I questioned her about a 13-point review of systems which was unremarkable, noncontributory, or negative except as noted including: No constitutional symptoms including weight stable at 120 pounds and appetite "usually like a horse." No history of thyroid disorder. Pulmonary: Chronic exertional dyspnea that is moderate, but no history of severe chronic wheezing. She has chest colds rarely only. GI: As above, but otherwise no history of indigestion, hepatitis, ulcer, or jaundice. PERSONAL AND SOCIAL HISTORY: Cigarettes: She reports smoke exposure as a child at home. Otherwise a lifetime nonsmoker. Alcohol: She drinks wine once a month when she goes out to dinner with her son. 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 Family: , but children her are in the region. FAMILY HISTORY: Not further contributory. PHYSICAL EXAMINATION: General appearance: Pleasant thin frail-appearing elderly woman. She appears frustrated to be in the hospital. She is visibly dyspneic, but mildly. Vital signs: Blood pressure 110/59 with heart rate 66 and regular. Orthostatic VS-- no significant orthostatic change noted. Respiratory rate 20 and mild dyspnea with SpO2 95% on room air. Note she has not been significantly hypoxic in the hospital or hypotensive. Afebrile 36.5, but note report that she was febrile with maximum temperature 39. Weight 54.2 kg. Neurologic and mental status: No overt focal neurologic defect noted. She is alert, oriented, appropriate, and conversant. HEENT: PERRL. Conjunctivae pale. Sclerae not icteric. Mouth and mucous membranes intact. Neck: Carotid upstroke brisk and full, clearly intact, without bruit bilaterally. Jugular venous pressure was flat. No palpable thyromegaly. No palpable cervical lymphadenopathy. Lungs: Diminished breath sounds bilaterally, consistent with COPD. Adventitial sounds noted. Cardiac: No chest wall tenderness. Heart examination notable for a 3/6 harsh mid-peaking systolic ejection murmur at the base that radiates more to the apex (Gallavardin) rather than to the neck. Not impressive for significant aortic stenosis. No aortic insufficiency heard. Abdomen: Flat and otherwise unremarkable examination, without tenderness, mass, hepatosplenomegaly, or bruit of abdominal aortic aneurysm. Extremities: Intact, without edema. No changes of arthritis in the hands. Pedal pulses intact bilaterally at the DP and PT. DIAGNOSTIC STUDIES: Electrocardiogram: I reviewed the prior ECG from March 2015 which does not show conduction defect but does show LVH. The current ECGs from admission, the next day, and this morning, and today during my examination show sinus rhythm with bifascicular block including new right bundle branch block and left axis deviation. There are no significant acute ST-T wave abnormalities. QTc is long. No Q-waves. Chest x-ray: I reviewed the films with the pulmonary job service consultant, who points out a subtle left lower lobe infiltrate, new from a prior x-ray. There is no cardiomegaly or pulmonary venous congestion of heart failure. There are clearly very enlarged lung volumes consistent with COPD. LABORATORY: Admitting labs include: CBC includes WBC 16,200 with hemoglobin 10.1, hematocrit 32.7, normal indices, and platelet count 365,000. Flaxton level 0.8. Chemistries include initially: Potassium 4.9, BUN 27, creatinine 1.01, with glucose 118 and lactic acid 1.0. Magnesium 2.1. Liver function tests unremarkable. Cardiac markers include initial troponin 0.302, then 0.11, then 0.149, then 0.179. CK MB 15.4, then 15.5, then 19.2. CK slightly elevated at 442, then 381, then 382. TSH 2.23 with free T4 1.34 and procalcitonin 0.41. Echocardiogram: The report of the echocardiogram shows normal LV size with no wall motion defect and no significant aortic stenosis. Normal PA systolic pressure. ASSESSMENT: I discussed the findings, impressions, and management considerations with the patient at length (no family present); with the Hospitalist service, Dr. Lake; and with the Pulmonary service, Dr. Britt; includin. Elevated Troponin: The patient appears to have a clinical picture that aside from the elevated troponin appears to be clearly pulmonary. The troponin raises the question of acute coronary syndrome with non-ST elevation myocardial infarction (NSTEMI). Aside from the troponin, however, are underlying risk factors which include rheumatoid disease. There is no other direct evidence of active cardiac disease, although note the one episode of ventricular tachycardia. Certainly coronary underlying coronary disease and an active coronary event is possible, especially in the setting of physiologic stress and acute inflammation. Therefore, acute coronary syndrome (ACS) is not ruled out despite the absence of direct evidence for acute coronary syndrome (ACS). We discussed diagnostic options including the recommendation for a pharmacologic stress test. I also considered catheterization. I do not favor this in this patient with multiple comorbidities and high risk for invasive procedures. Additionally the patient, in considering catheterization, told me "that's stupid I wouldn't do that." Also note the atypical feature of her seial troponin and CK MB being somewhat flat. RECOMMENDATIONS: 1. Remain inpatient present until cardiac status delineated. 2. Pharmacologic Lexiscan myocardial perfusion scan. She had caffeine this morning; therefore, planned in the a.m. 3. OMT: Guideline directed optimal medical therapy for underlying risk factors and possible coronary disease including ASA 81 mg daily, metoprolol if well tolerated at low dose, high-intensity statin, and heparin not contraindicated if well tolerated; but would not continue beyond 48 hours. 4. Please re-consult for ongoing cardiology consultation. FOLLOW-UP NOTE: She remained stable from cardiac point of view during the remainder of her hospitalization. MPS on Sunday, September 18, 2016, reported to show no ischemia. Discussed with Dr. Lake, including: Elevated Cardiac markers, including CK Total, and CK-MB may be chronic; and require ongoing surveillance. In the setting of her description of her weakness(can't push herself up out of a chair) I consider proximal muscle weakness in addition to her apparent geriatric frailness. Consider myopathy, which can be seen with rheumatologic disorders; and including to consider Polymyositis; and which can involve the heart. Regarding the VT which did not recur: May be a risk factor; and requires surveillance. At present, as we discussed, would continue to optimize K, Mg; and other possible related electrolyte, metabolic, drug effects; including any drugs that could prolong QT. Continue metoprolol unless not possible regarding considerations of side effects. Recommend full early rheumatologic consultation; and Cardiology Clinic follow- up. CC: DO RUCHI Lombardi
--- NOTE | 2016-09-16 17:19 | CONS ---
[address] [address] CONSULTATION REPORT PATIENT: BRADLY HESS : 1945 MR#: [id number] ADMIT: 09/14/2016 JOB ID: [id number] DATE OF SERVICE: 09/16/2016 PULMONARY CONSULTATION: REQUESTING PHYSICIAN: Bekah Lake DO REASON FOR CONSULTATION: Community-acquired pneumonia. HISTORY OF PRESENT ILLNESS: The patient is a 71-year-old female who was in her usual state of health until a few days ago. At that time she actually noticed that she had a bit of difficulty completing her exercise program on her treadmill. She states that she usually walks on a treadmill at 1 mile an hour, elevation 0 degrees for 20 minutes. However, the last few days she had increasing problems completing that exercise. She had stopped mostly because of weakness and in fact she fell twice because of weakness. At the same time noted some cough productive of some stringy yellow secretions. She did not notice any fever, chills, or sweats. Maybe had some associated shortness of breath, but she apparently decreased her exercise activity and therefore did not notice shortness of breath to that extent. The patient's pulmonary history dates back about five years. States she had a community-acquired pneumonia requiring hospitalization for a few days. Was not intubated. She states she completely recovered but does note that since that time she had some intermittent bouts of exercise intolerance. States at times she would get some shortness of breath. At other times she would have some ill-defined pain in the left lower lateral chest wall. Was subsequently given an albuterol inhaler. Used an inhaler about once a month. Took care of associated dyspnea on exertion as well as the chest discomfort. Would on occasion have cough and phlegm, but it was rather infrequent. In the last few days she was using her albuterol three or four times a day. Also increased the use of air filters in her home due to the smoke from [place] in [place]. No particular problem with headache. No sore throat. No dysphagia. Did not note any fever, chills, or sweats. No rash, myalgias, or arthralgias. The patient does not recall any prior lung disease. Was exposed to cigarette smoke as a child as both parents were smokers. In addition, her mother had to go to a [facility] for tuberculosis. The patient wants about [age] years old at the time. She did not have to take any pills as she indicates she always tested negative for TB. The patient also suffers from rheumatoid arthritis, with the diagnosis being made in the past few years. In the past would take prednisone intermittently for short periods of time. She does not quite recall why she took it and whether it was for rheumatoid arthritis or for lung issues. However, she has not done that in quite a while. Currently the rheumatoid arthritis is being treated with azithromycin, hydroxychloroquine, and methotrexate. The patient does not recall whether she was ever diagnosed with asthma or COPD. PAST MEDICAL HISTORY: Sjogren's disease. FAMILY HISTORY: No family history of asthma or COPD. Mother with TB as per above. CIGARETTE USE: None. HOBBIES: The patient enjoys gardening. Having a bit of trouble with the gardening in recent times. 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 She states that she would often change her focus of care due to getting bored. Does not recall ever being in a tuberculosis clinic. GEOGRAPHIC HISTORY: The patient traveled to [place], [place] a few years ago. Has not traveled to the [facility], [facility], [facility]. Did travel to [place]. OBJECTIVE: Temperature 36.5, pulse 66-82, respiratory rate 20, blood pressure 110/59, O2 sat on room air is 95% to 100%. General appearance: Well developed, though somewhat thin female in no acute distress. Moves slowly getting up off the sofa and climbing back into bed. Slowly rolled over. Eyes: Conjunctivae are pink and moist. Nose: Mild erythema. No edema. Throat: Good oral hygiene. Uvula asa in midline. Oropharynx was normal in appearance. Lymph nodes: None palpable. Trachea midline and mobile. Thyroid not palpable. Chest: Slight hyper-resonance to percussion. Fairly good breath sounds bilaterally. There are crackles in the left mid lung field, maybe extending down to the base. Right lung field is clear. No use of accessory muscles. No thoracoabdominal discoordination. Greenfield sign is negative. Heart: Regular rhythm. Heart tones normal. Abdomen: Soft. Nondistended. Nontender. Liver and spleen not palpable. No masses were palpable. Bowel tones were active. Extremities: No clubbing, cyanosis, or pretibial edema. Skin: No rash or subcutaneous nodules. LABORATORY VALUES: Shows a white count of 11,600. No differential was available. On admission two days ago white count was 16,200 with moderate neutrophilia. No eosinophilia. Hemoglobin 10.1. (Patient does suffer from chronic anemia which is under evaluation.) Platelet count 365,000. Sodium 141, potassium 5.1, chloride 110, CO2 is 19, BUN 29, creatinine 0.86, glucose mildly elevated 143, calcium 9.1, and magnesium 2.3. On admission total bilirubin 0.3, AST normal at 37, ALT minimally elevated at 42, alkaline phos normal at 71. Procalcitonin 0.35 today; yesterday it was 0.41. Urine for Legionella antigen is negative. Urine for streptococcal antigen is negative. Viral panel for respiratory viruses by PCR is negative. Nasal swab for MRSA by PCR is negative. DIAGNOSTIC STUDIES: Chest x-ray in the emergency department on admission two days ago shows some airspace opacities involving the left mid lung field. There is increase in lung volumes, with increased sternal space and flattening of the diaphragms. Some increased markings at the bases. A chest CT scan two weeks ago showed stable pulmonary nodules in the right upper lobe, lingula, and right middle lobe when compared to studies of August 14, 2015. Bronchiectasis present in the lingula and right middle lobe. There are some tree-in-bud abnormalities in the left upper lobe and posterior aspect of the lingula. Scattered ground-glass opacities at the bases. ASSESSMENT: 1. Left mid and lower lung infiltrate consistent with a pneumonia: Appears to be community-acquired pneumonia and currently being treated with azithromycin and ceftriaxone. Patient feeling quite a bit better than on admission two days ago, with improvement in her strength and to some extent her respiratory status, although again her activity remains marginal. Sputum production is decreasing. Overall feeling a bit stronger. Suspect, however, there is significant underlying lung disease. The patient did not recall ever being told she had rheumatoid arthritis involving the lung. Never told she had chronic obstructive pulmonary disease (COPD) or asthma. Currently undergoing evaluation by Pulmonology. Pulmonary function tests had been ordered a few weeks ago as an outpatient, scheduled for next week. Might want put that on hold for the moment as the current pulmonary infection will interfere with the PFT testing, though I suspect there is underlying obstructive airways disease, although there is minimal history (in fact no history) supportive of bronchiectasis that apparently is seen on the CT scan to some extent. What clinical significance it is playing is unclear as she does not describe frequent respiratory tract infections or clinical symptoms. 2. Pulmonary hypoinflation: Pulmonary function testing will be quite important. Suspect there is obstructive airways disease, be it chronic obstructive pulmonary disease (COPD), reactive airways disease, bronchiectasis, or bronchiolitis associated with rheumatoid arthritis, but is unclear. However, she is not particularly symptomatic by her history though I note she moves rather gingerly in the room. With regard to her pulmonary infection, I think she can be discharged on any one of a number of drugs including azithromycin, maybe Levaquin, maybe one of the 2nd generation cephalosporins. Already has an albuterol inhaler. Would have her use it on a p.r.n. basis and then we can see how she does at followup with pulmonology. Would have respiratory therapy walk the patient, not only to see how well she does in terms of walking, but whether she requires supplemental oxygen with exertion. Given her history of falling and her complaints of weakness, it might be useful to have physical therapy evaluate her strength and mobility with regard to endurance exercises such as walking or stair climbing, and whether she would be safe at home or not. PLAN: 1. Broad-spectrum antibiotic as an outpatient to cover the Strep and atypicals. 2. Have the patient follow up with pulmonology regarding rescheduling pulmonary function test and evaluation for underlying lung disease, as well as ensuring resolution of the apparent pneumonia. Thank you so much, Dr. Lake, for asking the Pulmonary service to see this most delightful and engaging individual.
--- NOTE | 2016-09-16 18:16 | NUR ---
Cardiac Heparin drip started as directed. Initial PTT drawn prior to start of gtt. Purpose of drip explained to patient who was verbalizing anxiety. Hand out given to patient regarding purpose of lab draws. Denies chest pain. Does admit to SOB that increases with exertion. Per diagnostic technician SR 70 with IVCD.
[2016-09-16 19:14] LABS: TROPONIN T 0.106 ug/L (0.0-0.011)
[2016-09-16] MEDS: cefTRIAXone Inj 2,000 MG in Dextrose 5% Minibag Plus 50 ML IV SCH (19:38)
--- NOTE | 2016-09-16 23:11 | PCM.PNMED ---
Subjective Date of Service Sep 16, 2016 Subjective I have tried to see this patient after pulmonology and cardiology has visited with her. She was visiting with a couple of her friends, she appeared overwhelmed. She asked me "you please go away and let me spend time with my friends." Because of this no physical examination was attempted. Patient was not very receptive to information I offered to give her. She appeared to be very upset that she is being treated for possible ischemia. Exam Vital Signs Vital Sign - Last Date Time Temp Pulse Resp B/P Pulse Ox O2 Delivery O2 Flow Rate FiO2 09/16/16 20:57 36.9 74 27 116/62 97 Room Air Intake and Output 09/15/16 09/15/16 09/16/16 Cumulative From/Thru 15:00 23:00 07:00 09/14/16 17:00 - 09/16/16 06:44 Intake Total 525 ml 400 ml 1885 ml Output Total 1600 ml 825 ml 3175 ml Balance -1075 ml -425 ml -1290 ml Intake Oral 525 ml 400 ml 1385 ml IV Total 500 ml Output Urine Total 1600 ml 825 ml 3175 ml # Voids 1 # Bowel Movements 4 5 Exam Patient did not allow a physical exam today. Gen.: Appears to be mildly overwhelmed and agitated HEENT: Pale Respiratory: No increased work of breathing Neck: No JVD Psych: Positive for mild agitation and anger/irritation Neurological: No focal deficits MSK: Patient is seen walking in the hallways later in the day IVs and Medications Medications Reviewed: Medications were reviewed in detail Lab and Diagnostics Result Diagram: 09/15/16 0547 09/16/16 0315 X-Rays, CTs and MRIs X-RAY CHEST, TWO VIEWS IMPRESSION: 1. Airspace opacity involving the left upper lobe likely pneumonia. Continued radiographic surveillance to resolution is recommended. 2. Lung volumes are increased suggesting COPD, correlate with pulmonary functions test. 3. Basilar scarring redemonstrated. Approved by: Rolf Alamo M.D. on 09/14/2016 at 17:[address] CHEST WITHOUT CONTRAST IMPRESSION: 1. Stable pulmonary nodules within the right upper lobe and anterior lingula and right middle lobe when compared with the prior study dated 08/14/15 and the study dated 05/13/15. Bronchiectasis is also present within the lingula and right middle lobe suggesting pulmonary scarring. 2. New, focal tree in bud nodules within the lateral aspect of the left upper lobe and within the posterior aspect of the lingula. These findings can be associated with endobronchial spread of infection. However, neoplasm cannot be excluded and three-month followup CT is recommended to ensure stability of this finding (please see followup guidelines below). 3. Geographic groundglass radiopacities at the lung bases. This is a nonspecific finding and can be associated with air trapping or pulmonary edema. Attention should be directed to this on future surveillance scans. Fleischner Society criteria for SOLID lung nodule followup. Nodule size (mm)Low-risk patientHigh-risk patient<6 (single or multiple)No routine followup.Optional CT at 12 months. 6-8 (single or multiple)CT at 6-12 months, then optional CT at 18-24 mo.CT at 6-12 months, then CT at 18-24 months. >8 (single)CT at 3 months, PET-CT, or biopsy. Same as for low-risk pts. >8 (multiple)CT at 3-6 months, then optional CT at 18-24 mo.CT at 3-6 months, then CT at 18-24 months. Fleischner Society criteria for SUB-SOLID lung nodule followup. Solitary pure ground-glass nodules<6 mm (ground glass or part solid)No followup needed. 6 mm or larger (ground glass)CT at 6-12 months to confirm persistence, then CT every 2 years until 5 years.6 mm or larger (part solid)CT at 3-6 months to confirm persistence, then annual CT until 5 years if unchanged and solid component remains <6 mm. Multiple sub-solid nodules<6 mmCT at 3-6 months, then CT consider at 2 & 4 years for high risk patients. [address] at 3-6 months. Subsequent management based on most suspicious lesions. Recommendations do not apply to lung cancer screening, patients with immunosuppression, or patients with known primary cancer. Approved by: Ana Harding M.D. on 09/05/2016 at 15:12 Assessment & Plan Katya Yeboah is a 71 year old lady with a past medical history significant for Sjogren's, Rheumatoid Arthritis, COPD, Aortic Stenosis who presents to the [facility] Emergency Department with 1 week history of weakness and 2x falls at home. She is being treated for pneumonia vs COPD exacerbation. Elevated troponins, present on admission. Active. - Possibly demand ischemia. - EKG reviewed - NSR, No ST elevations / depressions. Twave inversion V1, RBBB. - Tele on. - ASA given. - Trending troponins Q6H. - O2 on, titrate between 88 - 92% - Echocardiogram was performed this a.m.: "Left ventricular wall thickness is mildly increased. The ejection fraction is estimated to be 50-55%. Assessment of diastolic parameters indicates a relaxation abnormality of the left ventricle, The right ventricle is normal in size, thickness and function. The right ventricular systolic pressure is estimated at 31 mmHg assuming a right atrial pressure of 8 mm Hg. The left atrium is moderately dilated. There is a small loculated pericardial effusion. No significant changes since 03/17/2016." - Upon re-review it appears that patient has had significant troponin elev at the time of admission and no follow up troponins were done, apparently patient declined lab work. Echo showed no wall motion abn. Discussed case over the phone with Dr. Hummel on 09/15 PM, recommends checking the troponins, heparinize if there is concern with trop elev, and following up with a nuclear stress test when her pneumonia is adequately treated. Optimize therapy with ASA , beta alma and statin - Metoprolol 12.5 BID was added during rounding on 09/15. Aspirin one time loading dose of 325 mg, 81 mg daily thereafter. Atorvastatin 40 mg QHS. - will hold lisinopril at this time due to low BP. -- Dr. larkin from cardiology has seen the patient, agrees with heparinization, asks her medical therapy to be optimized. He plans on doing a nuclear stress test in the a.m. Dyspnea on exertion secondary to COPD exacerbation with possible pneumonia, present on admission. Active. - DDx includes Anemia, Pulmonary embolism and CAD - WBC trended down since admission, (16.2--> 11.6) however patient is on Dexamethasone chronically. - Wells score - 0. Will not obtain CT PE. - CXR as above. - Ceftriaxone / Azithromycin given in ED. Will continue. - Sputum cultures are ordered but not collected. Blood cx showed no growth to date. RSV panel is negative - Legionella/S. Pneumonia antigens were ordered and negative - Procalcitonin elevated 0.35-->0.41 - Viral PCR ordered. MRSA swab ordered. - Prednisone 40 mg Daily 5 days. - DuoNebs Q4HWA, Albuterol Q2H PRN. - Pulmonology consult has been ordered. Dr. Britt has seen the patient, feels that she does have pneumonia based on her CT and chest x-ray findings. Her 09/05 CT was ordered by Dr. garcia ". Broad-spectrum antibiotic as an outpatient to cover the Strep and atypicals. 2. Have the patient follow up with pulmonology regarding rescheduling pulmonary function test and evaluation for underlying lung disease, as well as ensuring resolution of the apparent pneumonia." -- Walking oxygen saturations are ordered Generalized weakness, present on admission. Active. - Likely 2nd to above and anemia. - TSH/T4 are within normal limits. - UA is negative - Orthostatics ordered. Negative for orthostatic hypotension. Chronic Conditions. Rheumatoid Arthritis - Continue home medications. - Hydroxychloroquine, Azathioprine, Methotrexate. Sjogrens - Continue home medications. Anemia of chronic disease.Stable. - Patient reports "black stools" - Stool Guaiac negative. - Hgb stable 10.1. - Continue home Ferrous Sulfate. --Ordered Iron Panel, Retic count, B12 and folate: anemia of chronic disease, Iron=18 -- We will offer Feraheme infusion, I suspect the patient will decline as she has been somewhat resistant to our management Pulmonary nodules - CT from 10 days ago outpatient as above. - Patient states that she missed a pulmonology appointment at Dr. garcia, -- Pulmonology consult is ordered, we appreciate the recommendations Acetaminophen for mild pain when necessary. Bowel regimen Senna and MiraLAX scheduled and PRN. Zofran when necessary for nausea and vomiting. SubQ heparin for now. SCDs in place. High-risk medications: NONE. Patient Status: Patient is admitted under inpatient status with expected length of stay greater than 2 midnights due to severity of presenting symptoms, risk of adverse event, and complexity of treatment plan. Pain Evaluation: Adequate Pain Control VTE Mechanical Devices: Venous Foot Pump Time spent 35 min Bekah Lake DO Sep 16, 2016 22:37
[2016-09-17] VITALS (9 sets, daily range): BP systolic 109–143; BP diastolic 60–80; PULSE 63–77; RESP 18–23; O2SAT 95–98
[2016-09-17 00:25] LABS: TROPONIN T 0.107 ug/L (0.0-0.011)
[2016-09-17 05:09] LABS: Vitamin B12 290 pg/mL (211-946)
--- NOTE | 2016-09-17 06:41 | NUR ---
Education On initial assessment patient presenting with several questions and concerns regarding new medications, tests, and possible cardiac issues based on lab results. Significant 1:1 spent with patient discussing new medications, stress test and lab results. Time spent to answer all questions. Once explanation given for medications patient cooperative with taking them.
[2016-09-17] MEDS: Ascorbic Acid 500 mg Tablet PO SCH (09:16)
[2016-09-17] MEDS: Hydroxychloroqine 200 mg Tablet PO SCH (09:16)
[2016-09-17] MEDS: Artificial Tears 15 mL Ophthalmic Solution BOTH_EYES SCH ×3 (09:17→21:21)
[2016-09-17] MEDS: predniSONE 20 mg Tablet PO SCH (09:17)
[2016-09-17] MEDS: Heparin 5,000 Unit/mL Inj IVPUSH PRN ×2 (10:23→21:15)
[2016-09-17 10:40] LABS: TROPONIN T 0.147 ug/L (0.0-0.011)
--- NOTE | 2016-09-17 12:00 | NUR ---
Evaluation completed. Please go to "Notes" then click on "Assessments and Notes" (bottom left corner of screen). Then select appropriate discipline tab on top of screen.
[2016-09-17 15:28] LABS: TROPONIN T 0.118 ug/L (0.0-0.011)
[2016-09-17 20:27] LABS: TROPONIN T 0.088 ug/L (0.0-0.011)
[2016-09-17] MEDS ORDERED: Ascorbic Acid 500 mg Tablet PO SCH (20:30)
[2016-09-17] MEDS: cefTRIAXone Inj 2,000 MG in Dextrose 5% Minibag Plus 50 ML IV SCH (21:10)
--- NOTE | 2016-09-17 21:58 | PCM.PNMED ---
Subjective Date of Service Sep 17, 2016 Subjective PAtient is much calmer today, conversing normally, walking in the hallways.Very apologetic for her behavior yesterday. Had several questions, which we addressed in detail. Exam Vital Signs Vital Sign - Last Date Time Temp Pulse Resp B/P Pulse Ox O2 Delivery O2 Flow Rate FiO2 09/17/16 13:58 36.7 70 23 117/62 95 Room Air Intake and Output 09/16/16 09/16/16 09/17/16 Cumulative From/Thru 15:00 23:00 07:00 09/14/16 17:00 - 09/17/16 06:03 Intake Total 965 ml 1450 ml 0 ml 4300 ml Output Total 1400 ml 1650 ml 6225 ml Balance 965 ml 50 ml -1650 ml -1925 ml Intake Oral 1450 ml 0 ml 2835 ml IV Total 965 ml 0 ml 1465 ml Output Urine Total 1400 ml 1650 ml 6225 ml # Voids 1 # Bowel Movements 2 7 Exam General: Frail and thin appearing elderly lady lying in bed in no acute distress , well-nourished, appropriately interactive HEENT: Normocephalic, atraumatic. Neck: Supple with full range of motion. No jugular venous distension. Cardiovascular: Regular rate and rhythm with no rubs, or gallops appreciated. 1 + systolic flow murmur. Pulmonary: Clear to auscultation , no wheezes, or rhonchi. Abdomen: Bowel tones present. Soft, nontender, nondistended. No hepatosplenomegaly or masses appreciated. Extremities: No clubbing, cyanosis, edema, or lymphadenopathy appreciated. Skin: Normal temperature, turgor, and texture; no rash, ulcers, or subcutaneous nodules appreciated. Neurological: No focal deficits Psychiatric: Normal mood and affect. Alert and oriented to person, place, and time. Lab and Diagnostics Result Diagram: 09/17/16 0740 09/17/16 0740 X-Rays, CTs and MRIs X-RAY CHEST, TWO VIEWS IMPRESSION: 1. Airspace opacity involving the left upper lobe likely pneumonia. Continued radiographic surveillance to resolution is recommended. 2. Lung volumes are increased suggesting COPD, correlate with pulmonary functions test. 3. Basilar scarring redemonstrated. Approved by: Rolf Alamo M.D. on 09/14/2016 at 17:[address] CHEST WITHOUT CONTRAST IMPRESSION: 1. Stable pulmonary nodules within the right upper lobe and anterior lingula and right middle lobe when compared with the prior study dated 08/14/15 and the study dated 05/13/15. Bronchiectasis is also present within the lingula and right middle lobe suggesting pulmonary scarring. 2. New, focal tree in bud nodules within the lateral aspect of the left upper lobe and within the posterior aspect of the lingula. These findings can be associated with endobronchial spread of infection. However, neoplasm cannot be excluded and three-month followup CT is recommended to ensure stability of this finding (please see followup guidelines below). 3. Geographic groundglass radiopacities at the lung bases. This is a nonspecific finding and can be associated with air trapping or pulmonary edema. Attention should be directed to this on future surveillance scans. Fleischner Society criteria for SOLID lung nodule followup. Nodule size (mm)Low-risk patientHigh-risk patient<6 (single or multiple)No routine followup.Optional CT at 12 months. 6-8 (single or multiple)CT at 6-12 months, then optional CT at 18-24 mo.CT at 6-12 months, then CT at 18-24 months. >8 (single)CT at 3 months, PET-CT, or biopsy. Same as for low-risk pts. >8 (multiple)CT at 3-6 months, then optional CT at 18-24 mo.CT at 3-6 months, then CT at 18-24 months. Fleischner Society criteria for SUB-SOLID lung nodule followup. Solitary pure ground-glass nodules<6 mm (ground glass or part solid)No followup needed. 6 mm or larger (ground glass)CT at 6-12 months to confirm persistence, then CT every 2 years until 5 years.6 mm or larger (part solid)CT at 3-6 months to confirm persistence, then annual CT until 5 years if unchanged and solid component remains <6 mm. Multiple sub-solid nodules<6 mmCT at 3-6 months, then CT consider at 2 & 4 years for high risk patients. [address] at 3-6 months. Subsequent management based on most suspicious lesions. Recommendations do not apply to lung cancer screening, patients with immunosuppression, or patients with known primary cancer. Approved by: Ana Harding M.D. on 09/05/2016 at 15:12 Assessment & Plan Katya Yeboah is a 71 year old lady with a past medical history significant for Sjogren's, Rheumatoid Arthritis, COPD, Aortic Stenosis who presents to the [facility] Emergency Department with 1 week history of weakness and 2x falls at home. She is being treated for pneumonia vs COPD exacerbation. Elevated troponins, present on admission. Active. - Possibly demand ischemia. - EKG reviewed - NSR, No ST elevations / depressions. Twave inversion V1, RBBB. - Tele on. - ASA given. - Trending troponins Q6H. - O2 on, titrate between 88 - 92% - Echocardiogram was performed this a.m.: "Left ventricular wall thickness is mildly increased. The ejection fraction is estimated to be 50-55%. Assessment of diastolic parameters indicates a relaxation abnormality of the left ventricle, The right ventricle is normal in size, thickness and function. The right ventricular systolic pressure is estimated at 31 mmHg assuming a right atrial pressure of 8 mm Hg. The left atrium is moderately dilated. There is a small loculated pericardial effusion. No significant changes since 03/17/2016." - Upon re-review it appears that patient has had significant troponin elev at the time of admission and no follow up troponins were done, apparently patient declined lab work. Echo showed no wall motion abn. Discussed case over the phone with Dr. Hummel on 8 PM, recommends checking the troponins, heparinize if there is concern with trop elev, and following up with a nuclear stress test when her pneumonia is adequately treated. Optimize therapy with ASA , beta alma and statin - Metoprolol 12.5 BID was added during rounding on 09/15. Aspirin one time loading dose of 325 mg, 81 mg daily thereafter. Atorvastatin 40 mg QHS. - will hold lisinopril at this time due to low BP. -- Dr. larkin from cardiology has seen the patient, agrees with heparinization, asks her medical therapy to be optimized. He plans on doing a nuclear stress test in the a.m. -- Troponins are trending down, CK-MB continues to be elevated, which is concerning. Dyspnea on exertion secondary to COPD exacerbation with possible pneumonia, present on admission. Active. - DDx includes Anemia, Pulmonary embolism and CAD - WBC trended down since admission, (16.2--> 11.6) however patient is on Dexamethasone chronically. - Wells score - 0. Will not obtain CT PE. - CXR as above. - Ceftriaxone / Azithromycin given in ED. Will continue. - Sputum cultures are ordered but not collected. Blood cx showed no growth to date. RSV panel is negative - Legionella/S. Pneumonia antigens were ordered and negative - Procalcitonin elevated 0.35-->0.41 - Viral PCR ordered. MRSA swab ordered. - Prednisone 40 mg Daily 5 days. - DuoNebs Q4HWA, Albuterol Q2H PRN. - Pulmonology consult has been ordered. Dr. Britt has seen the patient, feels that she does have pneumonia based on her CT and chest x-ray findings. Her 09/05 CT was ordered by Dr. garcia ". Broad-spectrum antibiotic as an outpatient to cover the Strep and atypicals. 2. Have the patient follow up with pulmonology regarding rescheduling pulmonary function test and evaluation for underlying lung disease, as well as ensuring resolution of the apparent pneumonia." -- Walking oxygen saturations are ordered, she is not needing oxygen Generalized weakness, present on admission. Active. - Likely 2nd to above and anemia. - TSH/T4 are within normal limits. - UA is negative - Orthostatics ordered. Negative for orthostatic hypotension. Chronic Conditions. Rheumatoid Arthritis - Continue home medications. - Hydroxychloroquine, Azathioprine, Methotrexate. Sjogrens - Continue home medications. Anemia of chronic disease.Stable. - Patient reports "black stools" - Stool Guaiac negative. - Hgb stable 10.1. - Continue home Ferrous Sulfate. --Ordered Iron Panel, Retic count, B12 and folate: anemia of chronic disease, Iron=18 -- We will offer Feraheme infusion, I suspect the patient will decline as she has been somewhat resistant to our management Pulmonary nodules - CT from 10 days ago outpatient as above. - Patient states that she missed a pulmonology appointment at Dr. garcia, -- Pulmonology consult is ordered, we appreciate the recommendations Acetaminophen for mild pain when necessary. Bowel regimen Senna and MiraLAX scheduled and PRN. Zofran when necessary for nausea and vomiting. SubQ heparin for now. SCDs in place. High-risk medications: NONE. Patient Status: Patient is admitted under inpatient status with expected length of stay greater than 2 midnights due to severity of presenting symptoms, risk of adverse event, and complexity of treatment plan. Pain Evaluation: Adequate Pain Control VTE Mechanical Devices: Venous Foot Pump Resuscitation Status: CPR: Attempt Resuscitation Time spent 25 min Bekah Lake DO Sep 17, 2016 16:13
--- NOTE | 2016-09-17 22:17 | NUR ---
Activity: Patient attempts to get out of bed without assistance. Her bed alarm is on and her call light is available to her.Patient is situated next to nurses station. Her hernandez curtain is open for easy view of patients activity.Patient is reoriented often . Frequent rounding and visiting patients room helps patient feel secure and not alone. Will continue patient care and safety. Addendum: 09/18/16 at 0740 by ANANT MERLOS RN Wrong patient: The above note was meant for another patient.
[2016-09-18] VITALS (8 sets, daily range): BP systolic 129–144; BP diastolic 66–72; PULSE 64–74; RESP 18–22; O2SAT 96–99
[2016-09-18 03:42] LABS: Mean Corpuscular Hemoglobin 28.1 pg (27.0-35.0); Mean Corpuscular Volume 91.9 fL (81-100)
[2016-09-18] MEDS: Heparin 5,000 Unit/mL Inj IVPUSH PRN (04:28)
[2016-09-18 04:46] LABS: TROPONIN T 0.135 ug/L (0.0-0.011)
--- NOTE | 2016-09-18 04:49 | NUR ---
TNI Call recd from chemistry reporting CKMB and TNI. TNI was 0.088 now 0.135, notified. Pt continues to be asymptomatic. Is hoping to go home soon.
[2016-09-18] MEDS: Artificial Tears 15 mL Ophthalmic Solution BOTH_EYES SCH ×2 (07:21→14:30)
--- NOTE | 2016-09-18 09:14 | NUR ---
off heparin for procedure pt needed to be saline locked. 0900 infused 322ml
--- NOTE | 2016-09-18 09:18 | NUR ---
off floor pt transported via W/C to have stress test done.
--- NOTE | 2016-09-18 09:52 | NUR ---
TIMMY attempted - pt off floor for stress test
[2016-09-18] MEDS: predniSONE 20 mg Tablet PO SCH (11:49)
[2016-09-18] MEDS: Ascorbic Acid 500 mg Tablet PO SCH (11:49)
[2016-09-18] MEDS: Hydroxychloroqine 200 mg Tablet PO SCH (11:50)
--- NOTE | 2016-09-18 13:02 | DRSVH ---
PROCEDURE: EITHER REST OR STRESS ONLY Pharmacological stress myocardial perfusion SPECT with gated imaging and ejection fraction. RADIOPHARMACEUTICAL: 21.6 mCi of Tc-99m tetrafosmin intravenously at peak pharmacologic stress. INDICATIONS: Elev trop. TECHNIQUE: Radiopharmaceutical was injected at peak stress test. SPECT images were obtained. SPECT myocardial perfusion images were displayed in short axis, horizontal long axis, and vertical long ax is views. Gated images were reviewed using Auto[employer] software. COMPARISON: None. CARDIAC STRESS: A pharmacologic stress test was performed under the supervision of an attending staff, using an infus ion of lexiscan 0.4mg IV X1. Hemodynamic data: There is normal blood pressure and heart rate response to pharmacologic stress. Symptoms: The patient denied anginal chest pain during drug infusion. Aminophylline: none EKG: Sinus rhythm with RBBB at baseline. No diagnostic EKG changes of ischemia during the stress te st; no ectopy. FINDINGS: Raw data: There is good tracer uptake by the myocardium. No significant motion artifacts. Left ventricular function: Gated images demonstrate normal left ventricle wall thickening. No segme ntal wall motion abnormalities. Left ventricle end-diastolic volume is 89 mL. Left ventricle stress ejection fraction is 72%; normal values are above 45%. Myocardial perfusion: Mild defect at the apex during stress supine images that resolve with prone im ages, suggesting apical thinning artifact. No ischemia or infarction noted. IMPRESSION: Normal low risk pharmaceutical nuclear stress test 1) Normal perfusion study without evidence of ischemia or infarction. Mild defect at the apex during stress supine images that resolve with prone images, suggesting apical thinning artifact. 2) Normal left ventricular size, wall motion, and systolic function (EF 72%). 3) No ECG evidence of ischemia. 4) No angina or angina equivalent symptoms during the study. 5) No prior nuclear stress test available for comparison. Dictated by: Benito Santillan M.D. on 09/18/2016 at 12:56 Approved by: Benito Santillan M.D. on 09/18/2016 at 13:01
[2016-09-18] MEDS ORDERED: METO25TA6 PO (13:32)
[2016-09-18] MEDS ORDERED: ATRV10T PO (13:45)
[2016-09-18] MEDS ORDERED: CEFD300C3 PO (13:46)
--- NOTE | 2016-09-18 13:48 | PCM.DIMED ---
Discharge Instructions Date of Service Sep 18, 2016 Dates of Hospitalization Sep 14, 2016 at 19:41 Discharge Diagnosis Discharge Diagnosis Community aCquired Pneumonia, elevated troponins, RA, Sjogrens, anemia of chronic disease Medication Instructions Additional med instructions Please note new medication atorvastatin 10 mg QHS Diet Discharge Diet: Heart Healthy Activity Discharge Activity: Other (walker for ambulation) Call your provider Call your provider for: Fever or Chills, Shortness of breath, Bleeding, Chest pain, Vomitting, Excessive diarrhea, Weakness (unilateral), Other Patient Instructions Follow-up plan Please follow up with Rheumatology in 2-3 weeks, discuss introduction of statin Please follow up with PCP in 1-2 weeks, discuss anemia Please f/u with Dr. Alex for Chest CT findings from 09/05 Bekah Lake DO Sep 18, 2016 13:48
--- NOTE | 2016-09-18 13:50 | PCM.DC.MED ---
Discharge Summary Date of Service Sep 18, 2016 Dates of Hospitalization Date of Hospital Admission Sep 14, 2016 at 19:41 Date of Discharge: Sep 18, 2016 Providers: Admitting Physician: Roger Wesley MD Primary Care Physician: Jay Marie MD Attending Physician: Bekah Gagnon DO Diagnosis at Time of Discharge Diagnosis at Time of Discharge Community aCquired Pneumonia, elevated troponins, RA, Sjogrens, anemia of chronic disease Procedures XRay, CTs & MRIs X-RAY CHEST, TWO VIEWS IMPRESSION: 1. Airspace opacity involving the left upper lobe likely pneumonia. Continued radiographic surveillance to resolution is recommended. 2. Lung volumes are increased suggesting COPD, correlate with pulmonary functions test. 3. Basilar scarring redemonstrated. Approved by: Rolf Alamo M.D. on 09/14/2016 at 17:[address] CHEST WITHOUT CONTRAST IMPRESSION: 1. Stable pulmonary nodules within the right upper lobe and anterior lingula and right middle lobe when compared with the prior study dated 08/14/15 and the study dated 05/13/15. Bronchiectasis is also present within the lingula and right middle lobe suggesting pulmonary scarring. 2. New, focal tree in bud nodules within the lateral aspect of the left upper lobe and within the posterior aspect of the lingula. These findings can be associated with endobronchial spread of infection. However, neoplasm cannot be excluded and three-month followup CT is recommended to ensure stability of this finding (please see followup guidelines below). 3. Geographic groundglass radiopacities at the lung bases. This is a nonspecific finding and can be associated with air trapping or pulmonary edema. Attention should be directed to this on future surveillance scans. Fleischner Society criteria for SOLID lung nodule followup. Nodule size (mm)Low-risk patientHigh-risk patient<6 (single or multiple)No routine followup.Optional CT at 12 months. 6-8 (single or multiple)CT at 6-12 months, then optional CT at 18-24 mo.CT at 6-12 months, then CT at 18-24 months. >8 (single)CT at 3 months, PET-CT, or biopsy. Same as for low-risk pts. >8 (multiple)CT at 3-6 months, then optional CT at 18-24 mo.CT at 3-6 months, then CT at 18-24 months. Fleischner Society criteria for SUB-SOLID lung nodule followup. Solitary pure ground-glass nodules<6 mm (ground glass or part solid)No followup needed. 6 mm or larger (ground glass)CT at 6-12 months to confirm persistence, then CT every 2 years until 5 years.6 mm or larger (part solid)CT at 3-6 months to confirm persistence, then annual CT until 5 years if unchanged and solid component remains <6 mm. Multiple sub-solid nodules<6 mmCT at 3-6 months, then CT consider at 2 & 4 years for high risk patients. [address] at 3-6 months. Subsequent management based on most suspicious lesions. Recommendations do not apply to lung cancer screening, patients with immunosuppression, or patients with known primary cancer. Approved by: Ana Harding M.D. on 09/05/2016 at 15:12 Brief History Katya Yeboah is a 71 year old lady with a past medical history significant for Sjogren's, Rheumatoid Arthritis, COPD, Aortic Stenosis who presents to the [facility] Emergency Department with 1 week history of weakness and 2x falls at home. She visited the urgency care today and was noted to be febrile 38.4 and CXR showed "pneumonia." Patient reports using albuterol much more often than usual. She reports 1 week increased use of air[place]filters [place] She reports mild dizziness, decreased appetite, weakness, shortness of breath, mildly productive cough (acute on chronic). She denies syncope, headache, increased thirst, fever, chills, chest pain, abdominal pain, diarrhea, constipation or dysuria. In the ED - Vitals: T -37.1, HR - 95, RR - 18, BP 109/60, 97 % RA. Notable LAbs: WBC - 16.2, N 84%, Hgb 10.1, Creat 1.01, Trop - 0.302 1. Airspace opacity involving the left upper lobe likely pneumonia. Continued radiographic surveillance to resolution is recommended. 2. Lung volumes are increased suggesting COPD, correlate with pulmonary functions test. 3. Basilar scarring redemonstrated. [facility]fort[facility] is primary care. She lives alone in a 1 story house. In the ED she received: Aspirin, Azithromycin, Ceftriaxone, Hospital Course Katya Yeboah is a 71 year old lady with a past medical history significant for Sjogren's, Rheumatoid Arthritis, COPD, Aortic Stenosis who presents to the [facility] Emergency Department with 1 week history of weakness and 2x falls at home. She is being treated for pneumonia vs COPD exacerbation. Elevated troponins, present on admission. Active. - Possibly demand ischemia. - EKG reviewed - NSR, No ST elevations / depressions. Twave inversion V1, RBBB. - Tele on. - ASA given. - Trending troponins Q6H. - O2 on, titrate between 88 - 92% - Echocardiogram was performed this a.m.: "Left ventricular wall thickness is mildly increased. The ejection fraction is estimated to be 50-55%. Assessment of diastolic parameters indicates a relaxation abnormality of the left ventricle, The right ventricle is normal in size, thickness and function. The right ventricular systolic pressure is estimated at 31 mmHg assuming a right atrial pressure of 8 mm Hg. The left atrium is moderately dilated. There is a small loculated pericardial effusion. No significant changes since 03/17/2016." - Upon re-review it appears that patient has had significant troponin elev at the time of admission and no follow up troponins were done, apparently patient declined lab work. Echo showed no wall motion abn. Discussed case over the phone with Dr. Hummel on 09/15 PM, recommends checking the troponins, heparinize if there is concern with trop elev, and following up with a nuclear stress test when her pneumonia is adequately treated. Optimize therapy with ASA , beta alma and statin - Metoprolol 12.5 BID was added during rounding on 09/15. Aspirin one time loading dose of 325 mg, 81 mg daily thereafter. Atorvastatin 40 mg QHS. - will hold lisinopril at this time due to low BP. -- Dr. larkin from cardiology has seen the patient, agrees with heparinization, asks her medical therapy to be optimized. He plans on doing a nuclear stress test in the a.m. -- Troponins are trending down, CK-MB continues to be elevated -- On the day of discharge patient has decided a nuclear stress test, riveter pneumatic Dr. Rob conveyed to me that this test is normal. I have asked patient to discontinue cardiac medications metoprolol, aspirin. -- Patient's elevated troponins were thought to be due to anemia versus Plaquenil versus pneumonia versus possible rheumatological disorder -- Based on her ASCVD risk score, I have given her atorvastatin 10 mg daily at bedtime -- On the day of discharge patient is ambulating in the hallways without oxygen , and eager to get home. -- We ask for her PCP and full charge bookkeeper to be elevated if her muscle weakness, and watch for any worsening of her symptoms with the atorvastatin. Dyspnea on exertion secondary to COPD exacerbation with possible pneumonia, present on admission. Active. - DDx includes Anemia, Pulmonary embolism and CAD - WBC trended down since admission, (16.2--> 11.6) however patient is on Dexamethasone chronically. - Wells score - 0. Will not obtain CT PE. - CXR as above. - Ceftriaxone / Azithromycin given in ED. Will continue. - Sputum cultures are ordered but not collected. Blood cx showed no growth to date. RSV panel is negative - Legionella/S. Pneumonia antigens were ordered and negative - Procalcitonin elevated 0.35-->0.41 - Viral PCR ordered. MRSA swab ordered. - Prednisone 40 mg Daily 5 days. - DuoNebs Q4HWA, Albuterol Q2H PRN. - Pulmonology consult has been ordered. Dr. Britt has seen the patient, feels that she does have pneumonia based on her CT and chest x-ray findings. Her 09/05 CT was ordered by Dr. garcia ". Broad-spectrum antibiotic as an outpatient to cover the Strep and atypicals. 2. Have the patient follow up with pulmonology regarding rescheduling pulmonary function test and evaluation for underlying lung disease, as well as ensuring resolution of the apparent pneumonia." -- Walking oxygen saturations are ordered, she is not needing oxygen. Patient declined need for outpatient hospitalization follow-up physical therapy -- Cefdinir 300 mg twice a day for 5 days per discharge Generalized weakness, present on admission. Active. - Likely 2nd to above and anemia. - TSH/T4 are within normal limits. - UA is negative - Orthostatics ordered. Negative for orthostatic hypotension. Chronic Conditions. Rheumatoid Arthritis - Continue home medications. - Hydroxychloroquine, Azathioprine, Methotrexate. Sjogrens - Continue home medications. Anemia of chronic disease.Stable. - Patient reports "black stools" - Stool Guaiac negative. - Hgb stable 10.1. - Continue home Ferrous Sulfate. --Ordered Iron Panel, Retic count, B12 and folate: anemia of chronic disease, Iron=18 -- We offered Feraheme infusion, patient has declined stating that she will discuss with PCP Pulmonary nodules - CT from 10 days ago outpatient as above. - Patient states that she missed a pulmonology appointment at Dr. garcia, -- Pulmonology consult is ordered, they feel that this is pneumonia we appreciate the recommendations Acetaminophen for mild pain when necessary. Bowel regimen Senna and MiraLAX scheduled and PRN. Zofran when necessary for nausea and vomiting. SubQ heparin for now. SCDs in place. High-risk medications: NONE. Patient Status: Patient is admitted under inpatient status with expected length of stay greater than 2 midnights due to severity of presenting symptoms, risk of adverse event, and complexity of treatment plan. Exam Vital Signs (Last) Date Time Temp Pulse Resp B/P Pulse Ox O2 Delivery O2 Flow Rate FiO2 09/18/16 12:46 36.8 74 19 129/72 99 Room Air Exam Gen.: No acute distress HEENT: NCAT Heart: Regular 1+ aortic stenosis murmur, regular rate and rhythm Lungs: Clear to auscultation of crackles or wheezes Extremity no edema Abdomen soft, nontender nondistended psych: Negative for anxiety Neuro: No focal deficits Test 09/14/16 00:00 09/14/16 18:17 09/14/16 18:26 09/14/16 23:16 Urine Legionella pneumophilia Ag Negative (Negative) Hold Purple Top Tube Received (Received) Hold Blue Top Tube Received (Received) Hold Red Top Tube Received (Received) Hold [place] Top Tube Received (Received) Neutrophils (%) (Auto) 84.6% (40-74) Lymphocytes (%) (Auto) 6.2% (14-46) Monocytes (%) (Auto) 7.8% (4-12) Eosinophils (%) (Auto) 0.7% (0-5) Basophils (%) (Auto) 0.4% (0-3) Lactic Acid Level 1.0mmol/L (0.4-2.0) Total Bilirubin 0.3mg/dL (0.0-1.2) Aspartate Amino Transf (AST/SGOT) 37U/L (0-50) Alanine Aminotransferase (ALT/SGPT) 42U/L (0-32) Alkaline Phosphatase 71U/L (25-165) Total Protein 6.9g/dL (6.4-8.4) Albumin 3.8g/dL (3.4-5.0) Thyroid Stimulating Hormone (TSH) 2.230uIU/mL (0.450-4.500) Free Thyroxine 1.34ng/dL (0.82-1.77) Urine Color Yellow (YELLOW) Urine Appearance Clear (CLEAR,HAZY) Urine pH 6.0 (5.0-8.0) Urine Specific [place] 1.010 (1.003-1.035) Urine Protein Negativemg/dL (NEG,TRACE) Urine Glucose (UA) Negativemg/dL (NEGATIVE) Urine Ketones Negativemg/dL (NEGATIVE) Urine Occult Blood Trace (NEGATIVE) Urine Nitrite Negative (NEGATIVE) Urine Bilirubin Negative (NEGATIVE) Urine Urobilinogen Normalmg/dL (NORMAL) Urine Leukocyte Esterase Negative (NEGATIVE) Urine RBC 0-2/hpf (0-2) Urine WBC 0-5/hpf (0-5) Urine Epithelial Cells Few/hpf (NONE-MOD) Urine Crystals None seen (NONE SEEN) Urine Bacteria Few/hpf (NONE-FEW) Urine Hyaline Casts None/lpf (NONE) Urine Granular Casts None seen (NONE SEEN) Urine Waxy Casts None seen (NONE SEEN) Urine Red Blood Cell Casts None seen (NONE SEEN) Urine White Blood Cell Casts None seen (NONE SEEN) Urine Mucus None seen (None Seen) Urine Trichomonas None seen (NONE SEEN) Urine Yeast None (NONE SEEN) Urinalysis Comment None Urine Culture Reflexed Not indicated Test 09/15/16 05:47 09/15/16 21:39 09/16/16 03:15 09/16/16 23:44 Reticulocyte Count,Calculated 0.5% (0.6-2.6) Vitamin B12 Level 290pg/mL (211-946) Folate > 19.9ng/mL (>3.0) Iron Level 18ug/dL (35-150) Total Iron Binding Capacity 138ug/dL (250-450) Percent Iron Saturation 13%sat (15-50) Unsaturated Iron Binding 119.8ug/dL Ferritin 1446ng/mL (13-150) Magnesium Level 2.3mg/dL (1.6-2.6) [place] Level 0.8mEq/L (0.5-1.5) Triglycerides Level 116mg/dL (0-149) Cholesterol Level 151mg/dL (100-199) LDL Cholesterol, Calculated 96.800mg/dL (0-99) VLDL Cholesterol 23.200mg/dL HDL Cholesterol 31mg/dL (>39) Cholesterol/HDL Ratio 4.87 (0.0-4.4) Test 09/17/16 19:31 09/18/16 03:00 09/18/16 11:50 Hold [place] Top Tube Received (Received) White Blood Count 13.3th/mm3 (3.8-10.1) Red Blood Count 3.45mil/mm3 (3.90-5.20) Mean Corpuscular Volume 91.9fL (81-100) Mean Corpuscular Hemoglobin 28.1pg (27.0-35.0) Mean Corpuscular Hemoglobin Concent 30.6% (32.0-37.0) Red Cell Distribution Width 16.6% (12.3-15.4) Platelet Count 508bil/L (150-400) Sodium Level 140mEq/L (134-144) Potassium Level 4.5mEq/L (3.5-5.2) Chloride Level 110mEq/L (97-108) Carbon Dioxide Level 18mmol/L (18-29) Blood Urea Nitrogen 32mg/dL (8-27) Creatinine 0.84mg/dL (0.57-1.00) Estimat Glomerular Filtration Rate 95mL/min (>59) Glucose Level 95mg/dL (60-99) Calcium Level 9.5mg/dL (8.5-10.1) Total Creatine Kinase 338U/L (21-215) Creatine Kinase MB 24.3ng/mL (0.0-5.3) Creatine Kinase MB % 7.2% (0.0-5.0) Troponin T 0.135ug/L (0.0-0.011) Procalcitonin 0.17ng/mL (0.00-0.08) Hemoglobin 10.8g/dL (12.0-15.6) Hematocrit 35.7% (35.0-46.0) Activated Partial Thromboplast Time 22.8sec (22.8-33.0) Discharge Medications Discharge Medications Ascorbate Calcium (Vitamin C) 500 Mg Tablet 500 MG PO QPM (Reported) Ascorbate Calcium (Vitamin C) 500 Mg Tablet 1,000 MG PO QAM (Reported) Atorvastatin (Lipitor) 10 Mg Tab 10 MG PO DAILY Prescribed by: BEKAH GAGNON DO Azathioprine (Azathioprine) 50 Mg Tablet 50 MG PO BID (Reported) Carboxymethylcell/Hypromellose (Genteal Gel Drops) 25 Ml Drp.lq.gel 1 DROP BOTH_ EYES TID (Reported) Cefdinir (Cefdinir) 300 Mg Capsule 300 MG PO BID Prescribed by: BEKAH GAGNON DO Ferrous Sulfate (Ferrous Sulfate) 325 Mg Tablet 650 MG PO QAM (Reported) Ferrous Sulfate (Ferrous Sulfate) 325 Mg Tablet 325 MG PO QPM (Reported) Hydroxychloroquine Sulfate (Hydroxychloroquine Sulfate) 200 Mg Tablet 400 MG PO DAILY (Reported) Lactobacillus Acidophilus (Probiotic) 1 Each Capsule 1 EACH PO DAILY (Reported) [place] Carbonate ([place] Carbonate) 300 Mg Cap 300 MG PO BID (Reported) Methotrexate Sodium (Methotrexate) 2.5 Mg Tablet 7.5 MG PO BID on Sundays ( Reported) Takes on Sundays 3 tabs (7.5mg) in AM and 3 tabs (7.5mg) in PM As needed Acetaminophen (Extra Strength Non-Aspirin) 500 Mg Tablet 1,000 MG PO TID PRN PRN For Pain (Reported) Albuterol HFA (Proair HFA) 8.5 Gm Hfa.aer.ad 2 PUFFS INHALATION Q4H PRN PRN For Shortness of Breath (Reported) Calcium Carbonate (Tums) 500 Mg Tab.chew 1,000 MG PO BID PRN PRN For Indigestion (Reported) Simethicone (Bicarsim Forte) 125 Mg Tablet 125 MG PO DAILY PRN PRN For GI Cramps (Reported) Additional med instructions Please note new medication atorvastatin 10 mg QHS Followup Plan Follow-up plan Please follow up with Rheumatology in 2-3 weeks, discuss introduction of statin Please follow up with PCP in 1-2 weeks, discuss anemia Please f/u with Dr. Alex for Chest CT findings from 09/05 Discharge Diet: Heart Healthy Discharge Activity: Other (walker for ambulation) Bekah Gagnon DO Sep 18, 2016 13:50
--- NOTE | 2016-09-18 14:50 | NUR ---
Social Work: Discharge/Multidisciplinary Rounds D: EMR reviewed. Pt is on day 4 of hospitalization. Pt discussed in multidisciplinary rounds and is medically stable for discharge home via POV. Pt to discharge on POABX. No MD orders received. No SW needs identified. Pt to discharge home via POV. A: Pt who is independent at baseline, currently capable of self care. P: Pt to discharge home via POV today. No MD orders received. Pt to discharge on POABX. No SW needs identified. No discharge needs identified at this time. DELIA Castellanos
--- NOTE | 2016-09-18 15:53 | NUR ---
discharge paperwork reviewed, no questions at this time. IV removed, tele dc'ed. patient is given a W/C ride to private car to return to private home. pt denies pain/distress/SOB. pt is accompanied to her private home with her grandson.
== END 2016-09-18 15:53 | disposition home or self-care (01) | DRG 190 ==
LOC: SED 16:58 → MPC 19:41
PROVIDERS: ADMIT Hospitalist; ATTEND Hospitalist
DX: J44.0 Chronic obstructive pulmonary disease with (acute) lower respiratory infection (principal); J18.9 Pneumonia, unspecified organism; I24.8 Other forms of acute ischemic heart disease; J44.1 Chronic obstructive pulmonary disease with (acute) exacerbation; M06.9 Rheumatoid arthritis, unspecified; M35.00 Sjogren syndrome, unspecified; R29.6 Repeated falls; R91.8 Other nonspecific abnormal finding of lung field; D63.8 Anemia in other chronic diseases classified elsewhere; Z79.51 Long term (current) use of inhaled steroids